=== PATIENT | female | born 1985 | race Caucasian/White ===

== ENCOUNTER 2019-09-15 21:07 | Inpatient (IN) | payer BC ==
[2019-09-15 21:43] LABS: Basophils % (A) 0 %; Eosinophils # (A) 0.1 k/uL (0-0.7); Eosinophils % (A) 1 %; HCT 45.4 % (34.0-46.0); HGB 15.2 gm/dL (11.4-16.0); Lymphocytes # (A) 0.8 k/uL (1.0-4.8); Lymphocytes % (A) 22 %; MCH 28.6 pg (25.0-35.0); MCHC 33.5 g/dL (31.0-37.0); MCV 85.3 fL (80.0-100.0); Mean Platelet Volume 8.3; Monocytes # (A) 0.3 k/uL (0-1.0); Monocytes % (A) 7 %; Neutrophils # (A) 2.5 k/uL (1.3-7.7); Neutrophils % (A) 68 %; Platelet Count 170 k/uL (150-450); RBC 5.33 m/uL (3.80-5.40); RDW 12.6 % (11.5-15.5); WBC 3.7 k/uL (3.8-10.6)
[2019-09-15 21:52] LABS: ALT 102 U/L (4-34); AST 68 U/L (14-36); African American GFR (CKD) >90 (>60 ml/min/1.73 sqM); Albumin 4.2 g/dL (3.5-5.0); Alkaline Phosphatase 114 U/L (38-126); Anion Gap 10 mmol/L; Blood Urea Nitrogen 9 mg/dL (7-17); Calcium 8.7 mg/dL (8.4-10.2); Carbon Dioxide 24 mmol/L (22-30); Chloride 103 mmol/L (98-107); Creatine Kinase 98 U/L (30-135); Glucose 154 mg/dL (74-99); Magnesium 1.9 mg/dL (1.6-2.3); Non-African American GFR(CKD) >90 (>60 ml/min/1.73 sqM); Potassium 3.6 mmol/L (3.5-5.1); Sodium 137 mmol/L (137-145); Total Bilirubin 0.4 mg/dL (0.2-1.3); Total Protein 7.1 g/dL (6.3-8.2)
--- NOTE | 2019-09-15 22:03 | ED ---
URI HPI - General Chief Complaint: Upper Respiratory Infection Stated Complaint: Shortness of Breath Time Seen by Provider: 09/15/19 21:15 Source: patient, RN notes reviewed Mode of arrival: ambulatory Limitations: no limitations - History of Present Illness Initial Comments: This is a 34-year-old female who presents with complaints of one week of cough fever some chills some sweats shortness of breath some chest pain. She was found upon arrival here to 101.1 temperature heart rate of 129 and sats are 99 however she does state that she has been exposed to patients with Covid-19 where she works. She does have a history of asthma. No overt phlegm production. Shows a states early on she did have some GI symptoms. The patient has been on azithromycin and steroids with no improvement No other current modifying factors MD Complaint: fever, cough, sore throat, nasal congestion, other - Related Data Home Medications Medication Instructions Recorded Confirmed traZODone HCL [Desyrel] 100 mg PO HS 05/20/15 09/15/19 Acetaminophen Tab [Tylenol] 650 mg PO Q6H PRN 09/15/19 09/15/19 Azithromycin [Zithromax Z-pack] See Taper PO DAILY 09/15/19 09/15/19 Citalopram Hydrobromide 30 mg PO HS 09/15/19 09/15/19 [Citalopram HBr] Introvale 0.15-0.3mg 1 tab PO HS 09/15/19 09/15/19 methylPREDNISolone [Medrol Dose See Taper PO DIRECTED 09/15/19 09/15/19 Pack] Allergies Allergy/AdvReac Type Severity Reaction Status Date / Time hydrocodone bitartrate AdvReac Nausea & Verified 09/15/19 22:14 [From Vicodin] Vomiting Review of Systems ROS Statement: Those systems with pertinent positive or pertinent negative responses have been documented in the HPI. ROS Other: All systems not noted in ROS Statement are negative. Past Medical History Past Medical History: Osteoarthritis (OA) History of Any Multi-Drug Resistant Organisms: None Reported Past Surgical History: Orthopedic Surgery Additional Past Surgical History / Comment(s): right eye surg., arthroscopic knee surg. Past Anesthesia/Blood Transfusion Reactions: No Reported Reaction Past Psychological History: Anxiety Smoking Status: Never smoker Past Alcohol Use History: Rare Past Drug Use History: None Reported - Past Family History Mother Family Medical History: No Reported History General Exam - General Exam Comments Initial Comments: This is a well-developed well-nourished awake alert oriented 3 female Limitations: no limitations General appearance: alert, anxious Head exam: Present: atraumatic, normocephalic, normal inspection Eye exam: Present: normal appearance, PERRL, EOMI. Absent: scleral icterus, conjunctival injection, periorbital swelling ENT exam: Present: mucous membranes dry, other (Mild posterior pharyngeal hyperemia) Neck exam: Present: normal inspection, full ROM. Absent: tenderness, meningismus, lymphadenopathy Respiratory exam: Present: decreased breath sounds. Absent: respiratory distress, wheezes, rales, rhonchi, stridor Cardiovascular Exam: Present: normal rhythm, tachycardia (Slightly diminished breath sounds bilaterally), normal heart sounds. Absent: systolic murmur, diastolic murmur, rubs, gallop, clicks GI/Abdominal exam: Present: soft, normal bowel sounds. Absent: distended, tenderness, guarding, rebound, rigid Extremities exam: Present: normal inspection, full ROM, normal capillary refill. Absent: tenderness, pedal edema, joint swelling, calf tenderness Back exam: Present: normal inspection Neurological exam: Present: alert, oriented X3, CN II-XII intact Psychiatric exam: Present: normal affect, normal mood Skin exam: Present: warm, dry, intact, normal color. Absent: rash Course Vital Signs 09/15/19 21:08 Temperature 101.1 F H Pulse Rate 129 H Respiratory 20 Rate Blood Pressure 147/93 O2 Sat by Pulse 99 Oximetry - Reevaluation(s) Reevaluation #1: 09/15/19 22:34 Discuss findings with the patient thus far the patient does have elevated d- dimer CAT scan pending. She does have left perihilar right lower lobe pneumonia. She will be admitted the case will be discussed with Dr. Rdz Medical Decision Making - Medical Decision Making I did discuss findings with the patient and later with Dr. Rdz facial be admitted for pneumonia and outpatient treatment failure. Influenza test is negative with Covid -19 testing pending - Lab Data Result diagrams: 09/15/19 21:20 09/15/19 21:20 Lab Results 09/15/19 09/15/19 09/15/19 Range/Units 21:20 21:20 21:40 WBC 3.7 L (3.8-10.6) k/uL RBC 5.33 (3.80-5.40) m/uL Hgb 15.2 (11.4-16.0) gm/dL Hct 45.4 (34.0-46.0) % MCV 85.3 (80.0-100.0) fL MCH 28.6 (25.0-35.0) pg MCHC 33.5 (31.0-37.0) g/dL RDW 12.6 (11.5-15.5) % Plt Count 170 (150-450) k/uL Neutrophils % 68 % Lymphocytes % 22 % Monocytes % 7 % Eosinophils % 1 % Basophils % 0 % Neutrophils # 2.5 (1.3-7.7) k/uL Lymphocytes # 0.8 L (1.0-4.8) k/uL Monocytes # 0.3 (0-1.0) k/uL Eosinophils # 0.1 (0-0.7) k/uL Basophils # 0.0 (0-0.2) k/uL D-Dimer 0.75 H (<0.60) mg/L FEU Sodium 137 (137-145) mmol/L Potassium 3.6 (3.5-5.1) mmol/L Chloride 103 (98-107) mmol/L Carbon Dioxide 24 (22-30) mmol/L Anion Gap 10 mmol/L BUN 9 (7-17) mg/dL Creatinine 0.75 (0.52-1.04) mg/dL Est GFR (CKD-EPI)AfAm >90 (>60 ml/min/1.73 sqM) Est GFR (CKD-EPI)NonAf >90 (>60 ml/min/1.73 sqM) Glucose 154 H (74-99) mg/dL Calcium 8.7 (8.4-10.2) mg/dL Magnesium 1.9 (1.6-2.3) mg/dL Total Bilirubin 0.4 (0.2-1.3) mg/dL AST 68 H (14-36) U/L ALT 102 H (4-34) U/L Alkaline Phosphatase 114 (38-126) U/L Creatine Kinase 98 (30-135) U/L Troponin I (0.000-0.034) ng/mL Total Protein 7.1 (6.3-8.2) g/dL Albumin 4.2 (3.5-5.0) g/dL Influenza Type A RNA (Not Detectd) Influenza Type B (PCR) (Not Detectd) 09/15/19 09/15/19 Range/Units 21:40 21:40 WBC (3.8-10.6) k/uL RBC (3.80-5.40) m/uL Hgb (11.4-16.0) gm/dL Hct (34.0-46.0) % MCV (80.0-100.0) fL MCH (25.0-35.0) pg MCHC (31.0-37.0) g/dL RDW (11.5-15.5) % Plt Count (150-450) k/uL Neutrophils % % Lymphocytes % % Monocytes % % Eosinophils % % Basophils % % Neutrophils # (1.3-7.7) k/uL Lymphocytes # (1.0-4.8) k/uL Monocytes # (0-1.0) k/uL Eosinophils # (0-0.7) k/uL Basophils # (0-0.2) k/uL D-Dimer (<0.60) mg/L FEU Sodium (137-145) mmol/L Potassium (3.5-5.1) mmol/L Chloride (98-107) mmol/L Carbon Dioxide (22-30) mmol/L Anion Gap mmol/L BUN (7-17) mg/dL Creatinine (0.52-1.04) mg/dL Est GFR (CKD-EPI)AfAm (>60 ml/min/1.73 sqM) Est GFR (CKD-EPI)NonAf (>60 ml/min/1.73 sqM) Glucose (74-99) mg/dL Calcium (8.4-10.2) mg/dL Magnesium (1.6-2.3) mg/dL Total Bilirubin (0.2-1.3) mg/dL AST (14-36) U/L ALT (4-34) U/L Alkaline Phosphatase (38-126) U/L Creatine Kinase (30-135) U/L Troponin I <0.012 (0.000-0.034) ng/mL Total Protein (6.3-8.2) g/dL Albumin (3.5-5.0) g/dL Influenza Type A RNA Not Detected (Not Detectd) Influenza Type B (PCR) Not Detected (Not Detectd) - Radiology Data Radiology results: report reviewed (I did review the x-ray results (however pneumonia right lower lobe pneumonia), image reviewed Disposition Clinical Impression: Pneumonia, Febrile illness, acute, Tachycardia, Asthmatic bronchitis, Failure of outpatient treatment Disposition: ADMITTED IP TO THIS HOSP Condition: Fair Referrals: Cora Cowart MD [Primary Care Provider] - 1-2 days
--- NOTE | 2019-09-15 22:27 | XR ---
EXAMINATION TYPE: XR chest 1V portable DATE OF EXAM: 09/15/2019 COMPARISON: 11/01/2012 INDICATION: Pain, cough, short of breath TECHNIQUE: Single frontal view of the chest is obtained. FINDINGS: The heart size is normal. The pulmonary vasculature is normal. There is mild ill-defined infiltrate in the left perihilar region. Some mild right lower lobe infiltr ate is present. Some air bronchograms may be present. Correlate for pneumonia. IMPRESSION: 1. Mild left perihilar and right lower lobe infiltrates. Correlate for pneumonia.
[2019-09-15] MEDS ORDERED: PNEUMONIA PROTOCOL UTILIZED 1 EACH MISC PO PRN (22:42)
[2019-09-15] MEDS: SODIUM CHLORIDE 0.9% 1,000 ML IV SCH (23:05)
[2019-09-15 23:08] LABS: INR 0.9 (<1.2); Prothrombin Time 9.3 sec (9.0-12.0)
--- NOTE | 2019-09-15 23:09 | CT ---
CT CHEST FOR PULMONARY EMBOLISM. EXAMINATION TYPE: CT angio chest DATE OF EXAM: 09/15/2019 INDICATION: rule out pe CT DLP: 403.3 mGycm, Automated exposure control for dose reduction was used. CONTRAST: Patient injected with 80mL mL of Isovue 370. COMPARISON: None TECHNIQUE: CT of the chest is performed on a spiral scan at 2 mm thick sections. Study is performed with intravenous contrast timed for evaluation for pulmonary embolism. This will limit additional po rtions of the evaluation. 3-D MIP images reconstructed by the technologist are reviewed on the compu ter in the coronal and sagittal planes. FINDINGS: No persistent filling defects are evident to suggest an acute pulmonary embolism. No mediastinal or hilar adenopathy enlarged by CT criteria is evident. The ascending aorta diameter at the level of the main pulmonary artery is 3.1 cm. The main pulmonary artery diameter at the bifur cation is 3.0 cm. There is minimal groundglass opacities within the perihilar regions. There is a small hiatal hernia p resent. Limited CT section through the upper abdomen are unremarkable. IMPRESSIONS: 1. No acute pulmonary embolism. 2. Minimal groundglass opacities within the perihilar regions. Correlate for infection. This appears atypical for pulmonary edema.
[2019-09-15 23:14] LABS: C Reactive Protein 23.8 mg/L (<10.0)
[2019-09-15 23:18] LABS: Partial Thromboplastin Time 21.5 sec (22.0-30.0)
[2019-09-15] MEDS: ACETAMINOPHEN TAB 325 MG TAB PO PRN (23:55)
[2019-09-16 02:27] LABS: Appearance,Urine Clear (Clear); Bilirubin,Urine Negative (Negative); Blood,Urine Negative (Negative); Color,Urine Yellow; Glucose,Urine (UA) Negative (Negative); Ketones,Urine Negative (Negative); Leukocyte Esterase,Urine Negative (Negative); Mucus,Urine Rare /hpf; Nitrite,Urine Negative (Negative); PH, Urine 6.5 (5.0-8.0); Protein,Urine 1+ (Negative); RBC,Urine 1 /hpf (0-5); Squamous Epithelial Cell,Urine 6 /hpf (0-4); Urobilinogen,Urine <2.0 mg/dL (<2.0); WBC,Urine 1 /hpf (0-5)
[2019-09-16] MEDS: ALBUTEROL INHALER 60 PUFF/8 GM INHALER (BULK) INHALATION SCH ×3 (02:28→11:53)
[2019-09-16 02:35] LABS: Specific Gravity,Urine >1.050 (1.001-1.035)
--- NOTE | 2019-09-16 07:16 | XR ---
EXAMINATION TYPE: XR chest 1V portable DATE OF EXAM: 09/16/2019 COMPARISON: 09/15/2019 HISTORY: Chest pain TECHNIQUE: Single frontal view of the chest is obtained. FINDINGS: Persistent right perihilar and to a lesser extent left perihilar infiltrate. Correlate pneumonia. The cardiac silhouette size is within normal limits. The osseous structures are intact. IMPRESSION: 1. Persistent right perihilar and to a lesser extent left perihilar infiltrate. Correlate pneumonia.
[2019-09-16] MEDS: SODIUM CHLORIDE 0.9% 1,000 ML IV SCH ×2 (10:04→19:35)
[2019-09-16] MEDS: HYDROXYCHLOROQUINE SULFATE 200 MG TAB PO SCH ×2 (10:21→21:57)
[2019-09-16] MEDS: methylPREDNISolone SOD SUCCI 40 MG/ML 1 ML VIAL IV SCH ×3 (10:21→23:45)
[2019-09-16] MEDS: AZITHROMYCIN 500 MG TAB PO SCH (10:21)
[2019-09-16] MEDS: ENOXAPARIN 40 MG/0.4 ML SYRINGE SQ SCH (11:23)
[2019-09-16] MEDS: ACETAMINOPHEN TAB 325 MG TAB PO PRN (11:23)
[2019-09-16] MEDS ORDERED: ONDANSETRON 4 MG/2 ML VIAL IVP PRN (12:41)
--- NOTE | 2019-09-16 14:05 | P.CNPUL ---
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 He was febrile on presentation with a temp of 101.1F, tachycardic, but normal pulse oximetry. She has been exposed to COVID 19 at work. She does have underlying history of mild intermittent bronchial asthma and she only uses Ventolin on as-needed basis, other medical history includes anxiety, and patient is a lifetime nonsmoker. Chest x-ray showed a mild left perihilar and right lower lobe infiltrate. Lab work showed leukopenia and lymphopenia, with a white blood cell count of 3.7, lymphocyte count of 0.8, d- dimer was 0.75, electrolyte renal profile were unremarkable, pro-calcitonin level was negative at 0.06, troponin was less than 0.012, CRP was 23.8, LDH was 533 ferritin was within normal limits at 105 plasma lactic acid was 1.1, urinalysis showed elevated specific gravity consistent with dehydration but no definite evidence of infection, influenza was not detected, Covid 19 testing has been done and is pending at this time, CTA chest was obtained showing no evidence of acute pulmonary embolism, and minimal groundglass opacities within the perihilar regions suspicious for Covid 19 related pneumonitis. Were asked to see the patient in consultation in regards to the above-mentioned symptoms for shortness of breath, and possible Covid 19 pneumonia Review of Systems All systems: negative Constitutional: Reports chills, Reports fever Eyes: denies blurred vision, denies pain Ears, nose, mouth and throat: Denies headache, Denies sore throat Cardiovascular: Denies chest pain, Denies shortness of breath Respiratory: Reports dyspnea, Denies cough Gastrointestinal: Denies abdominal pain, Denies diarrhea, Denies nausea, Denies vomiting Genitourinary: Denies dysuria, Denies hematuria Musculoskeletal: Denies myalgias Integumentary: Denies pruritus, Denies rash Neurological: Denies numbness, Denies weakness Psychiatric: Denies anxiety, Denies depression Endocrine: Denies fatigue, Denies weight change Past Medical History Past Medical History: Asthma, Osteoarthritis (OA) Additional Past Medical History / Comment(s): ovarian cyst, endomytriosis History of Any Multi-Drug Resistant Organisms: None Reported Past Surgical History: Orthopedic Surgery Additional Past Surgical History / Comment(s): right eye surg., arthroscopic knee surg. Past Anesthesia/Blood Transfusion Reactions: No Reported Reaction Past Psychological History: Anxiety, PTSD Smoking Status: Never smoker Past Alcohol Use History: Rare Past Drug Use History: None Reported - Past Family History Mother Family Medical History: No Reported History Medications and Allergies Home Medications Medication Instructions Recorded Confirmed Type traZODone HCL [Desyrel] 100 mg PO HS 05/20/15 09/15/19 History Acetaminophen Tab [Tylenol] 650 mg PO Q6H PRN 09/15/19 09/15/19 History Azithromycin [Zithromax Z-pack] See Taper PO DAILY 09/15/19 09/15/19 History Citalopram Hydrobromide 30 mg PO HS 09/15/19 09/15/19 History [Citalopram HBr] Introvale 0.15-0.3mg 1 tab PO HS 09/15/19 09/15/19 History methylPREDNISolone [Medrol Dose See Taper PO DIRECTED 09/15/19 09/15/19 History Pack] Allergies Allergy/AdvReac Type Severity Reaction Status Date / Time hydrocodone bitartrate AdvReac Nausea & Verified 09/15/19 22:14 [From Vicodin] Vomiting Physical Exam Vitals: Vital Signs Temp Pulse Pulse Resp BP BP Pulse Ox 09/16/19 11:45 99.5 F 92 19 118/80 95 09/16/19 07:00 99.2 F 85 18 145/99 97 09/16/19 05:00 95 09/16/19 03:36 98.6 F 83 15 113/80 94 L 09/16/19 01:25 99.4 F 09/16/19 01:00 95 09/15/19 23:54 101.1 F H 108 H 15 131/90 98 09/15/19 23:10 99.9 F H 101 H 18 122/87 97 09/15/19 21:08 101.1 F H 129 H 20 147/93 99 Intake and Output 09/15/19 09/16/19 09/16/19 22:59 06:59 14:59 Intake Total 640 Balance 640 Intake: Intake, IV Titration 100 Amount Sodium Chloride 0.9% 1, 100 000 ml @ 50 mls/hr IV . Q20H [facility] Rx#:[id number] Oral 540 Other: Voiding Method Toilet Toilet # Voids 1 Weight 92.986 kg 92.986 kg GENERAL EXAM: Alert, very pleasant, 34-year-old white female with room air pulse ox of 95% mildly dyspneic comfortable in no apparent distress. HEAD: Normocephalic/atraumatic. EYES: Normal reaction of pupils, equal size. Conjunctiva pink, sclera white. NOSE: Clear with pink turbinates. THROAT: No erythema or exudates. NECK: No masses, no JVD, no thyroid enlargement, no adenopathy. CHEST: No chest wall deformity. Symmetrical expansion. LUNGS: Equal air entry with no crackles, wheeze, rhonchi or dullness. CVS: Regular rate and rhythm, normal S1 and S2, no gallops, no murmurs, no rubs ABDOMEN: Soft, nontender. No hepatosplenomegaly, normal bowel sounds, no guarding or rigidity. EXTREMITIES: No clubbing, no edema, no cyanosis, 2+ pulses and upper and lower extremities. MUSCULOSKELETAL: Muscle strength and tone normal. SPINE: No scoliosis or deformity SKIN: No rashes CENTRAL NERVOUS SYSTEM: Alert and oriented -3. No focal deficits, tone is nor mal in all 4 extremities. PSYCHIATRIC: Alert and oriented -3. Appropriate affect. Intact judgment and insight. Results - Laboratory Findings CBC and BMP: 09/15/19 21:20 09/15/19 21:20 PT/INR, D-dimer PT 9.3 sec (9.0-12.0) 09/15/19 21:40 INR 0.9 (<1.2) 09/15/19 21:40 D-Dimer 0.75 mg/L FEU (<0.60) H 09/15/19 21:40 Abnormal lab findings: Abnormal Labs 09/15/19 09/15/19 09/15/19 21:20 21:20 21:40 WBC 3.7 L Lymphocytes # 0.8 L APTT D-Dimer 0.75 H Glucose 154 H AST 68 H ALT 102 H C-Reactive Protein Ur Specific [place] Urine Protein Ur Squamous Epith Cells Urine Mucus 09/15/19 09/15/19 09/16/19 21:40 21:40 02:12 WBC Lymphocytes # APTT 21.5 L D-Dimer Glucose AST ALT C-Reactive Protein 23.8 H Ur Specific [place] >1.050 H Urine Protein 1+ H Ur Squamous Epith Cells 6 H Urine Mucus Rare H - Diagnostic Findings Chest x-ray: report reviewed, image reviewed CT scan - chest: report reviewed, image reviewed Assessment and Plan Plan: Assessment: #1. Febrile illness, dyspnea, rule out COVID 19 related pneumonitis. Pro- calcitonin level came back low at 0.06, going out possibility of bacterial pneumonia. Chest x-ray showed mild left perihilar and right lower lobe infiltrates. D-dimer was mildly elevated 0.75. CTA chest showed no acute pulmonary embolism, but did show minimal ground glass opacities within the perihilar regions suspicious for Covid 19 related pneumonitis #2. Leukopenia, and lymphopenia likely related to Covid 19 related pneumonia #3. Mild intermittent bronchial asthma #4. Anxiety #5. Mild dehydration Plan: Continue ceftriaxone, we will add Zithromax, we'll add hydroxychloroquine, IV steroids, Ventolin, and Symbicort. Covid 19 testing is pending, follow-up chest x-ray in the morning monitor fever pattern, and oxygen demand. We'll continue to closely follow clinical course. I performed a history & physical examination of the patient and discussed their management with my nurse practitioner, Beth Gee. I reviewed the nurse practitioner's note and agree with the documented findings and plan of care. Lung sounds are positive for diminished breath sounds. The findings and the impression was discussed with the patient. I attest to the documentation by the nurse practitioner. Time with Patient: Greater than 30
[2019-09-16] MEDS ORDERED: ALBUTEROL HFA INHALER INHALATION SCH (20:00)
[2019-09-16] MEDS: SYMBICORT 160-4.5 MCG INHALER INHALATION SCH (20:13)
--- NOTE | 2019-09-16 20:16 | P.HPIM ---
History of Present Illness H&P Date: 09/16/19 Chief Complaint: Cough fever History of present complaint: This is a pleasant [address]. Patient of Dr[address] Cowart. Chronic stable medical conditions include endometriosis, PTSD, anxiety. 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 For about a week patient been having a cough which is dry fevers short of breath chest tightness. Also having some headache. Body aches. Also had about once a loose stools so vomiting. Tired rundown. Patient had taken off time from work about 5-6 days ago. Now presenting here Labs were sent out for COVID-19. tired and rundown. Review of systems: GEN.: Fever or tiredness EYES: None HEENT: Headache NECK: None RESPIRATORY: As above CARDIOVASCULAR: None GASTROINTESTINAL: About one dose to a GENITOURINARY: None MUSCULOSKELETAL: Generalized itchiness LYMPHATICS: None HEMATOLOGICAL: None PSYCHIATRY: None NEUROLOGICAL: None Past medical history to include: Asthma, endometriosis, PTSD, anxiety Social history: Does not smoke. Alcohol rarely. 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 Family history: Reviewed, noncontributory to presentation Physical examination: VITAL SIGNS: 101.1, 129, 20, 147/93, melena 9% on room air GENERAL: BMI 36.3, sitting up, tired. EYES: Pupils equal. Conjunctiva normal. HEENT: External appearance of nose and ears normal, oral cavity grossly normal. NECK: JVD not raised; masses not palpable. HEART: First and second heart sounds are normal; no edema. LUNGS: Respiratory rate increased, decreased breath sounds. ABDOMEN: Soft, nontender, liver spleen not palpable, no masses palpable. PSYCH: Alert and oriented x3; mood and affect tiredl. NEUROLOGICAL: Cranial nerves grossly intact; no facial asymmetry, power and sensation grossly intact. LYMPHATICS: No lymph nodes palpable in the axilla and neck INVESTIGATIONS, reviewed in the clinical context: White count 3.7 hemoglobin 13.2 neutrophils neutrophils 2.5 lymphocytes 0.8 d- dimer 0.75 potassium 3.6 AST 68 ALT 102 CRP 23.8 pro calcitonin 0.06 Influenza type A and type B both negative COVID-19 PCR pending Chest x-ray film personally reviewed by me-bilateral scattered infiltrates EKG tracing personally reviewed by me-normal sinus rhythm nonspecific T-wave changes Computed tomography scan of the chest-minimal groundglass appearance within the perihilar regions Assessment: -This is a patient presents 1 week of respiratory symptoms including dry cough fever short of breath chest tightness or a systemic findings and some diarrhea. Checks x-ray and computed tomography scan was suggestive of infiltrates. Clinical picture compatible with novel coronavirus infected pneumonia -Obesity BMI 36.3 -Intermittent asthma with acute exacerbation -PTSD stable -Anxiety not otherwise specified Plan: Patient be started on Zithromax, ceftriaxone. Home medications resumed. Lovenox for DVT prophylaxis. Also empirically started on Plaquenil. Also Ventolin inhalers been added. Pulmonary was consulted. COVID-19 testing is pending. Care was discussed with the patient. Add zinc Past Medical History Past Medical History: Asthma, Osteoarthritis (OA) Additional Past Medical History / Comment(s): ovarian cyst, endomytriosis History of Any Multi-Drug Resistant Organisms: None Reported Past Surgical History: Orthopedic Surgery Additional Past Surgical History / Comment(s): right eye surg., arthroscopic knee surg. Past Anesthesia/Blood Transfusion Reactions: No Reported Reaction Past Psychological History: Anxiety, PTSD Smoking Status: Never smoker Past Alcohol Use History: Rare Past Drug Use History: None Reported - Past Family History Mother Family Medical History: No Reported History Medications and Allergies Home Medications Medication Instructions Recorded Confirmed Type traZODone HCL [Desyrel] 100 mg PO HS 05/20/15 09/15/19 History Acetaminophen Tab [Tylenol] 650 mg PO Q6H PRN 09/15/19 09/15/19 History Azithromycin [Zithromax Z-pack] See Taper PO DAILY 09/15/19 09/15/19 History Citalopram Hydrobromide 30 mg PO HS 09/15/19 09/15/19 History [Citalopram HBr] Introvale 0.15-0.3mg 1 tab PO HS 09/15/19 09/15/19 History methylPREDNISolone [Medrol Dose See Taper PO DIRECTED 09/15/19 09/15/19 History Pack] Allergies Allergy/AdvReac Type Severity Reaction Status Date / Time hydrocodone bitartrate AdvReac Nausea & Verified 09/15/19 22:14 [From Vicodin] Vomiting Physical Exam Vitals: Vital Signs Temp Pulse Pulse Resp BP BP Pulse Ox 09/16/19 07:00 99.2 F 85 18 145/99 97 09/16/19 05:00 95 09/16/19 03:36 98.6 F 83 15 113/80 94 L 09/16/19 01:25 99.4 F 09/16/19 01:00 95 09/15/19 23:54 101.1 F H 108 H 15 131/90 98 09/15/19 23:10 99.9 F H 101 H 18 122/87 97 09/15/19 21:08 101.1 F H 129 H 20 147/93 99 Intake and Output 09/15/19 09/16/19 09/16/19 22:59 06:59 14:59 Intake Total 640 Balance 640 Intake: Intake, IV Titration 100 Amount Sodium Chloride 0.9% 1, 100 000 ml @ 50 mls/hr IV . Q20H [facility] Rx#:[id number] Oral 540 Other: Voiding Method Toilet Toilet # Voids 1 Weight 92.986 kg 92.986 kg Results CBC & Chem 7: 09/15/19 21:20 09/15/19 21:20 Labs: Abnormal Lab Results - Last 24 Hours (Table) 09/15/19 09/15/19 09/15/19 Range/Units 21:20 21:20 21:40 WBC 3.7 L (3.8-10.6) k/uL Lymphocytes # 0.8 L (1.0-4.8) k/uL APTT (22.0-30.0) sec D-Dimer 0.75 H (<0.60) mg/L FEU Glucose 154 H (74-99) mg/dL AST 68 H (14-36) U/L ALT 102 H (4-34) U/L C-Reactive Protein (<10.0) mg/L Ur Specific [place] (1.001-1.035) Urine Protein (Negative) Ur Squamous Epith Cells (0-4) /hpf Urine Mucus (None) /hpf 09/15/19 09/15/19 09/16/19 Range/Units 21:40 21:40 02:12 WBC (3.8-10.6) k/uL Lymphocytes # (1.0-4.8) k/uL APTT 21.5 L (22.0-30.0) sec D-Dimer (<0.60) mg/L FEU Glucose (74-99) mg/dL AST (14-36) U/L ALT (4-34) U/L C-Reactive Protein 23.8 H (<10.0) mg/L Ur Specific [place] >1.050 H (1.001-1.035) Urine Protein 1+ H (Negative) Ur Squamous Epith Cells 6 H (0-4) /hpf Urine Mucus Rare H (None) /hpf Thrombosis Risk Factor Assmnt - Choose All That Apply Each Factor Represents 1 point: Obesity (BMI >25), Oral contraceptives or ho rmone replacement therapy Thrombosis Risk Factor Assessment Total Risk Factor Score: 2 Thrombosis Risk Factor Assessment Level: Low Risk
[2019-09-16] MEDS: traZODone HCL 50 MG TAB PO SCH (20:59)
[2019-09-16] MEDS: CITALOPRAM HYDROBROMIDE 10 MG TAB PO SCH (21:00)
[2019-09-16] MEDS: INTROVALE PO SCH (21:19)
[2019-09-17] MEDS: ENOXAPARIN 40 MG/0.4 ML SYRINGE SQ SCH (07:30)
[2019-09-17] MEDS: methylPREDNISolone SOD SUCCI 40 MG/ML 1 ML VIAL IV SCH ×2 (07:32→16:52)
[2019-09-17] MEDS: HYDROXYCHLOROQUINE SULFATE 200 MG TAB PO SCH ×2 (07:32→21:19)
[2019-09-17] MEDS: AZITHROMYCIN 500 MG TAB PO SCH (07:32)
[2019-09-17] MEDS: ALBUTEROL HFA INHALER INHALATION SCH ×4 (07:51→20:28)
[2019-09-17] MEDS: SYMBICORT 160-4.5 MCG INHALER INHALATION SCH ×2 (07:52→20:28)
--- NOTE | 2019-09-17 08:36 | XR ---
EXAMINATION TYPE: XR chest 1V portable DATE OF EXAM: 09/17/2019 COMPARISON: 40 01/28/2020 INDICATION: Covid 19 TECHNIQUE: Single frontal view of the chest is obtained. FINDINGS: The heart size is normal. The pulmonary vasculature is normal. Subtle increased lung markings may be present diffusely. This is very mild and subtle compared to the prior study. No suspicious focal consolidation is evident. IMPRESSION: 1. Mild diffuse increased lung markings less focal than the comparison. Significant radiographic adva ncement is not evident at this time.
[2019-09-17] MEDS: ACETAMINOPHEN TAB 325 MG TAB PO PRN ×2 (11:54→16:52)
--- NOTE | 2019-09-17 12:27 | P.PN ---
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 He was febrile on presentation with a temp of 101.1F, tachycardic, but normal pulse oximetry. She has been exposed to COVID 19 at work. She does have underlying history of mild intermittent bronchial asthma and she only uses Ventolin on as-needed basis, other medical history includes anxiety, and patient is a lifetime nonsmoker. Chest x-ray showed a mild left perihilar and right lower lobe infiltrate. Lab work showed leukopenia and lymphopenia, with a white blood cell count of 3.7, lymphocyte count of 0.8, d- dimer was 0.75, electrolyte renal profile were unremarkable, pro-calcitonin level was negative at 0.06, troponin was less than 0.012, CRP was 23.8, LDH was 533 ferritin was within normal limits at 105 plasma lactic acid was 1.1, urinalysis showed elevated specific gravity consistent with dehydration but no definite evidence of infection, influenza was not detected, Covid 19 testing has been done and is pending at this time, CTA chest was obtained showing no evidence of acute pulmonary embolism, and minimal groundglass opacities within the perihilar regions suspicious for Covid 19 related pneumonitis. Were asked to see the patient in consultation in regards to the above-mentioned symptoms for shortness of breath, and possible Covid 19 pneumonia On 09/17/2019 patient seen in follow-up on a regular medical surgical floor, she is feeling better, breathing easier today, she's been afebrile, room air pulse ox is 95%, hemodynamically she is stable, lung sounds improved today. Her Covid 19 testing was positive. Today's follow-up chest x-ray was reviewed showing mild diffuse increased lung markings that are less focal than the comparison. Clinically patient is improving, she has not shown any signs of deterioration since admission, she could possibly be considered for discharge home today to continue and self quarantine Objective - Vital Signs Vital signs: Vital Signs Temp 98.7 F 09/17/19 11:18 Pulse 103 H 09/17/19 11:18 Resp 19 09/17/19 11:18 BP 135/94 09/17/19 11:18 Pulse Ox 95 09/17/19 11:18 Intake & Output 09/16/19 09/17/19 09/17/19 18:59 06:59 18:59 Intake Total 640 20 580 Balance 640 20 580 Intake: Intake, IV Titration 100 Amount Sodium Chloride 0.9% 1, 100 000 ml @ 50 mls/hr IV . Q20H [facility] Rx#:[id number] Oral 540 20 580 Other: Voiding Method Toilet Toilet - Exam GENERAL EXAM: Alert, very pleasant, 34-year-old white female with room air pulse ox of 95% comfortable in no apparent distress. HEAD: Normocephalic/atraumatic. EYES: Normal reaction of pupils, equal size. Conjunctiva pink, sclera white. NOSE: Clear with pink turbinates. THROAT: No erythema or exudates. NECK: No masses, no JVD, no thyroid enlargement, no adenopathy. CHEST: No chest wall deformity. Symmetrical expansion. LUNGS: Equal air entry with no crackles, wheeze, rhonchi or dullness. CVS: Regular rate and rhythm, normal S1 and S2, no gallops, no murmurs, no rubs ABDOMEN: Soft, nontender. No hepatosplenomegaly, normal bowel sounds, no guarding or rigidity. EXTREMITIES: No clubbing, no edema, no cyanosis, 2+ pulses and upper and lower extremities. MUSCULOSKELETAL: Muscle strength and tone normal. SPINE: No scoliosis or deformity SKIN: No rashes CENTRAL NERVOUS SYSTEM: Alert and oriented -3. No focal deficits, tone is normal in all 4 extremities. PSYCHIATRIC: Alert and oriented -3. Appropriate affect. Intact judgment and insight. - Labs CBC & Chem 7: 09/15/19 21:20 09/15/19 21:20 Labs: Abnormal Lab Results - Last 24 Hours (Table) 09/15/19 Range/Units 21:40 Coronavirus (PCR) Detected H (Not Detected) Microbiology - Last 24 Hours (Table) 09/15/19 21:40 Blood Culture - Preliminary Blood No Growth after 24 hours Assessment and Plan Plan: Assessment: #1. Febrile illness, dyspnea, related to Covid 19 pneumonitis. Pro-calcitonin level came back low at 0.06, ruling out possibility of bacterial pneumonia. Chest x-ray showed mild left perihilar and right lower lobe infiltrates. D- dimer was mildly elevated 0.75. CTA chest showed no acute pulmonary embolism, but did show minimal ground glass opacities within the perihilar regions suspicious for Covid 19 related pneumonitis #2. Leukopenia, and lymphopenia likely related to Covid 19 related pneumonia #3. Mild intermittent bronchial asthma #4. Anxiety #5. Mild dehydration Plan: Continue current medical treatment, Covid 19 testing came back positive, contin ue Plaquenil, Rocephin and Zithromax, IV Solu-Medrol. Patient is feeling better, breathing easier, she has not shown any signs of clinical deterioration, she is on room air, maintaining stable oxygenation, from pulmonary perspective she could be considered for discharge home today or tomorrow to continue in self-quarantine I performed a history & physical examination of the patient and discussed their management with my nurse practitioner, Beth Gee. I reviewed the nurse practitioner's note and agree with the documented findings and plan of care. Lung sounds are positive for diminished breath sounds. The findings and the impression was discussed with the patient. I attest to the documentation by the nurse practitioner. Time with Patient: Less than 30
[2019-09-17] MEDS: SODIUM CHLORIDE 0.9% 1,000 ML IV SCH (14:21)
--- NOTE | 2019-09-17 20:32 | P.PN ---
Progress Note - Text Progress Note Date: 09/17/19 Chief Complaint: Cough fever History of present complaint: This is a pleasant 30[address] Coawrt. Chronic stable medical conditions include endometriosis, PTSD, anxiety. 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 For about a week patient been having a cough which is dry fevers short of breath chest tightness. Also having some headache. Body aches. Also had about once a loose stools so vomiting. Tired rundown. Patient had taken off time from work about 5-6 days ago. Now presenting here Labs were sent out for COVID-19. tired and rundown. Admitted with pneumonia asthma exacerbation. Today-. A bit better. Though tired. Decreased appetite. COVID PCR came back positive. Patient a bit more cheerful. Review of systems: Was done for constitutional, cardiovascular, GI, pulmonary. relevant finding as above Active Medications Acetaminophen (Tylenol Tab) 650 mg PO Q6H PRN PRN Reason: Fever Last Admin: 09/17/19 16:52 Dose: 650 mg Documented by: Albuterol Sulfate (Ventolin Hfa Inhaler) 2 puff INHALATION RT-QID [facility] Last Admin: 09/17/19 16:13 Dose: 2 puff Documented by: Azithromycin (Zithromax) 500 mg PO DAILY [facility] Last Admin: 09/17/19 07:32 Dose: 500 mg Documented by: Budesonide/Formoterol Fumarate (Symbicort 160-4.5 Mcg Inhaler) 2 puff INHALATION RT-BID [facility] Last Admin: 09/17/19 07:52 Dose: 2 puff Documented by: Citalopram Hydrobromide (Celexa) 30 mg PO HS [facility] Last Admin: 09/16/19 21:00 Dose: 30 mg Documented by: Enoxaparin Sodium (Lovenox) 40 mg SQ DAILY [facility] Last Admin: 09/17/19 07:30 Dose: Not Given Documented by: Hydroxychloroquine Sulfate (Plaquenil) 200 mg PO BID [facility] Stop: 09/20/19 21:01 Last Admin: 09/17/19 07:32 Dose: 200 mg Documented by: Ceftriaxone Sodium 1 gm/ (Sodium Chloride) 50 mls @ 100 mls/hr IVPB Q24H [facility] Last Admin: 09/16/19 22:09 Dose: 100 mls/hr Documented by: Sodium Chloride (Saline 0.9%) 1,000 mls @ 50 mls/hr IV .Q20H [facility] Last Admin: 09/17/19 14:21 Dose: Not Given Documented by: Methylprednisolone Sodium Succinate (Solu-Medrol) 40 mg IV Q8HR [facility] Last Admin: 09/17/19 16:52 Dose: 40 mg Documented by: Miscellaneous Information (Pneumonia Protocol Utilized) 1 each PO ONCE PRN PRN Reason: Per Protocol Introvale 0.15-0.3mg (1 Tab) 1 tab PO [facility] Last Admin: 09/16/19 21:19 Dose: 1 tab Documented by: Ondansetron HCl (Zofran) 4 mg IVP Q6HR PRN PRN Reason: Nausea And Vomiting Trazodone HCl (Desyrel) 100 mg PO [facility] Last Admin: 09/16/19 20:59 Dose: 100 mg Documented by: Physical examination: VITAL SIGNS: 98.7, 103, 19, 135/94, 95% on room air GENERAL: Sitting up in bed, looking better EYES: Pupils equal. Conjunctiva normal. HEENT: External appearance of nose and ears normal, oral cavity grossly normal. NECK: JVD not raised; masses not palpable. HEART: First and second heart sounds are normal; no edema. LUNGS: Respiratory rate increased, decreased breath sounds. ABDOMEN: Soft, nontender, liver spleen not palpable, no masses palpable. PSYCH: Alert and oriented x3; mood and affect tiredl. INVESTIGATIONS, reviewed in the clinical context: COVID-19 PCR detected Previous testing White count 3.7 hemoglobin 13.2 neutrophils neutrophils 2.5 lymphocytes 0.8 d- dimer 0.75 potassium 3.6 AST 68 ALT 102 CRP 23.8 pro calcitonin 0.06 Influenza type A and type B both negative Chest x-ray film personally reviewed by me-bilateral scattered infiltrates EKG tracing personally reviewed by me-normal sinus rhythm nonspecific T-wave changes Computed tomography scan of the chest-minimal groundglass appearance within the perihilar regions Assessment: -novel coronavirus infected pneumonia -Obesity BMI 36.3 -Intermittent asthma with acute exacerbation -PTSD stable -Anxiety not otherwise specified Plan: on Zithromax, ceftriaxone. Plaquenil. Also Ventolin inhalers been added. Switched to oral prednisone in the morning. Feeling a bit better. Encouraged increase ambulation. Repeat labs in the morning.
[2019-09-17] MEDS: CITALOPRAM HYDROBROMIDE 10 MG TAB PO SCH (21:18)
[2019-09-17] MEDS: INTROVALE PO SCH (21:19)
[2019-09-17] MEDS: traZODone HCL 50 MG TAB PO SCH (21:19)
[2019-09-17] MEDS: ZINC SULFATE 220 MG CAP PO SCH (21:44)
[2019-09-18 06:50] LABS: Basophils % (A) 0 %; Eosinophils % (A) 0 %; HCT 42.3 % (34.0-46.0); HGB 13.7 gm/dL (11.4-16.0); Lymphocytes # (A) 0.9 k/uL (1.0-4.8); Lymphocytes % (A) 10 %; MCHC 32.3 g/dL (31.0-37.0); MCV 86.9 fL (80.0-100.0); Mean Platelet Volume 8.1; Monocytes # (A) 0.4 k/uL (0-1.0); Monocytes % (A) 4 %; Neutrophils # (A) 7.6 k/uL (1.3-7.7); Neutrophils % (A) 85 %; Platelet Count 220 k/uL (150-450); RBC 4.87 m/uL (3.80-5.40); RDW 12.7 % (11.5-15.5)
[2019-09-18] MEDS: HYDROXYCHLOROQUINE SULFATE 200 MG TAB PO SCH (07:36)
[2019-09-18] MEDS: ENOXAPARIN 40 MG/0.4 ML SYRINGE SQ SCH (07:36)
[2019-09-18] MEDS: AZITHROMYCIN 500 MG TAB PO SCH (07:36)
[2019-09-18] MEDS: ZINC SULFATE 220 MG CAP PO SCH (07:36)
[2019-09-18] MEDS: SYMBICORT 160-4.5 MCG INHALER INHALATION SCH (07:38)
[2019-09-18] MEDS: ALBUTEROL HFA INHALER INHALATION SCH ×2 (07:38→11:55)
[2019-09-18] MEDS: ACETAMINOPHEN TAB 325 MG TAB PO PRN (07:43)
[2019-09-18] MEDS ORDERED: predniSONE 20 MG TAB PO SCH (09:00)
[2019-09-18 11:22] VITALS: BP 130/81; PULSE 82; RESP 18; TEMP 98.4
--- NOTE | 2019-09-18 11:55 | P.PN ---
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 He was febrile on presentation with a temp of 101.1F, tachycardic, but normal pulse oximetry. She has been exposed to COVID 19 at work. She does have underlying history of mild intermittent bronchial asthma and she only uses Ventolin on as-needed basis, other medical history includes anxiety, and patient is a lifetime nonsmoker. Chest x-ray showed a mild left perihilar and right lower lobe infiltrate. Lab work showed leukopenia and lymphopenia, with a white blood cell count of 3.7, lymphocyte count of 0.8, d- dimer was 0.75, electrolyte renal profile were unremarkable, pro-calcitonin level was negative at 0.06, troponin was less than 0.012, CRP was 23.8, LDH was 533 ferritin was within normal limits at 105 plasma lactic acid was 1.1, urinalysis showed elevated specific gravity consistent with dehydration but no definite evidence of infection, influenza was not detected, Covid 19 testing has been done and is pending at this time, CTA chest was obtained showing no evidence of acute pulmonary embolism, and minimal groundglass opacities within the perihilar regions suspicious for Covid 19 related pneumonitis. Were asked to see the patient in consultation in regards to the above-mentioned symptoms for shortness of breath, and possible Covid 19 pneumonia On 09/17/2019 patient seen in follow-up on a regular medical surgical floor, she is feeling better, breathing easier today, she's been afebrile, room air pulse ox is 95%, hemodynamically she is stable, lung sounds improved today. Her Covid 19 testing was positive. Today's follow-up chest x-ray was reviewed showing mild diffuse increased lung markings that are less focal than the comparison. Clinically patient is improving, she has not shown any signs of deterioration since admission, she could possibly be considered for discharge home today to continue and self quarantine On 09/18/2019 patient seen in follow-up on the regular medical surgical floor. She is feeling better, vital signs are stable, she has been afebrile, no rhonchi or wheezing on today's exam, patient has been transitioned to oral prednisone at 60 mg daily, she is on Zithromax and Rocephin, and she is completing her course of hydroxychloroquine for positive Covid 19 test. No new chest x-rays today, CRP is trending down, no LDH of ferritin were repeated today. Clinically patient is improving, upon her perspective she can considered for discharge home today Objective - Vital Signs Vital signs: Vital Signs Temp 98.4 F 09/18/19 11:21 Pulse 82 09/18/19 11:21 Resp 18 09/18/19 11:21 BP 130/81 09/18/19 11:21 Pulse Ox 94 L 09/18/19 11:21 Intake & Output 09/17/19 09/18/19 09/18/19 18:59 06:59 18:59 Intake Total 760 50 580 Balance 760 50 580 Intake: Intake, IV Titration 50 Amount cefTRIAXone 1 gm In 50 Sodium Chloride 0.9% 50 ml @ 100 mls/hr IVPB Q24H [facility] Rx#:[id number] Oral 760 580 Other: Voiding Method Toilet Toilet # Voids 1 1 - Exam GENERAL EXAM: Alert, very pleasant, 34-year-old white female with room air pulse ox of 95% comfortable in no apparent distress. HEAD: Normocephalic/atraumatic. EYES: Normal reaction of pupils, equal size. Conjunctiva pink, sclera white. NOSE: Clear with pink turbinates. THROAT: No erythema or exudates. NECK: No masses, no JVD, no thyroid enlargement, no adenopathy. CHEST: No chest wall deformity. Symmetrical expansion. LUNGS: Equal air entry with no crackles, wheeze, rhonchi or dullness. CVS: Regular rate and rhythm, normal S1 and S2, no gallops, no murmurs, no rubs ABDOMEN: Soft, nontender. No hepatosplenomegaly, normal bowel sounds, no guarding or rigidity. EXTREMITIES: No clubbing, no edema, no cyanosis, 2+ pulses and upper and lower extremities. MUSCULOSKELETAL: Muscle strength and tone normal. SPINE: No scoliosis or deformity SKIN: No rashes CENTRAL NERVOUS SYSTEM: Alert and oriented -3. No focal deficits, tone is normal in all 4 extremities. PSYCHIATRIC: Alert and oriented -3. Appropriate affect. Intact judgment and insight. - Labs CBC & Chem 7: 09/18/19 05:31 09/15/19 21:20 Labs: Abnormal Lab Results - Last 24 Hours (Table) 09/18/19 09/18/19 Range/Units 05:31 05:31 Lymphocytes # 0.9 L (1.0-4.8) k/uL C-Reactive Protein 11.0 H (<10.0) mg/L Microbiology - Last 24 Hours (Table) 09/15/19 21:40 Blood Culture - Preliminary Blood No Growth after 48 hours Assessment and Plan Plan: Assessment: #1. Febrile illness, dyspnea, related to Covid 19 pneumonitis. Pro-calcitonin level came back low at 0.06, ruling out possibility of bacterial pneumonia. Chest x-ray showed mild left perihilar and right lower lobe infiltrates. D- dimer was mildly elevated 0.75. CTA chest showed no acute pulmonary embolism, but did show minimal ground glass opacities within the perihilar regions suspicious for Covid 19 related pneumonitis. On 09/18/2019 patient is feeling better, she is recovering from her Covid 19 related pneumonia. Afebrile #2. Leukopenia, and lymphopenia likely related to Covid 19 related pneumonia #3. Mild intermittent bronchial asthma #4. Anxiety #5. Mild dehydration, improved Plan: Continue current medical treatment, patient has been transitioned to oral prednisone, she continues on Plaquenil, and Rocephin and Zithromax, she's been off the oxygen, she is feeling and breathing better, no persistent cough, no persistent fevers, CRP is trending down, clinically stable, and can be considere d for discharge home today. She will need to continue self isolation, she will need follow-up test in 2 weeks for Covid 19 infection I performed a history & physical examination of the patient and discussed their management with my nurse practitioner, Beth Gee. I reviewed the nurse practitioner's note and agree with the documented findings and plan of care. Lung sounds are positive for diminished breath sounds. The findings and the impression was discussed with the patient. I attest to the documentation by the nurse practitioner. Time with Patient: Less than 30
--- NOTE | 2019-09-18 21:44 | P.DS ---
Providers Date of admission: 09/15/19 22:42 Expected date of discharge: 09/18/19 Attending physician: Parth Rdz Consults: 09/15/19 22:42 Consult Physician Routine Consulting Provider: Hernando Mack Consult Reason/Comments: Bilateral pneumonia rule out Covid 19 Do you want consulting provider notified?: Yes Primary care physician: Cora Cowart [facility] Course: Chief Complaint: Cough fever History of present complaint: This is a pleasant 34-year-old. Patient of Dr. Cowrat. Chronic stable medical conditions include endometriosis, PTSD, anxiety. 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 For about a week patient been having a cough which is dry fevers short of breath chest tightness. Also having some headache. Body aches. Also had about once a loose stools so vomiting. Tired rundown. Patient had taken off time from work about 5-6 days ago. Now presenting here Labs were sent out for COVID-19. tired and rundown. Admitted with pneumonia, asthma exacerbation. COVID PCR came back positive. Today-. Doing better. Eating her diet. Pulse ox good on room air. Up and about to the bathroom. Cane to go home. Quarantine was discussed with the patient. Cleared by pulmonary. Discussion and discharge planning more than 35 minutes Consultation: Dr. Barr from pulmonary Physical examination: VITAL SIGNS: 98.4, 82, 18, 130/81, 94% on room air GENERAL: Sitting up in bed, comfortable EYES: Pupils equal. Conjunctiva normal. HEENT: External appearance of nose and ears normal, oral cavity grossly normal. NECK: JVD not raised; masses not palpable. HEART: First and second heart sounds are normal; no edema. LUNGS: Respiratory rate normal, decreased breath sounds. ABDOMEN: Soft, nontender, liver spleen not palpable, no masses palpable. PSYCH: Alert and oriented x3; mood and affect tiredl. INVESTIGATIONS, reviewed in the clinical context: White count 9 hemoglobin 13.7 CRP 11 Previous testing White count 3.7 hemoglobin 13.2 neutrophils neutrophils 2.5 lymphocytes 0.8 d- dimer 0.75 potassium 3.6 AST 68 ALT 102 CRP 23.8 pro calcitonin 0.06 Influenza type A and type B both negative COVID-19 PCR detected Chest x-ray film personally reviewed by me-bilateral scattered infiltrates EKG tracing personally reviewed by me-normal sinus rhythm nonspecific T-wave changes Computed tomography scan of the chest-minimal groundglass appearance within the perihilar regions Assessment: -novel coronavirus infected pneumonia-improving -Obesity BMI 36.3 -Intermittent asthma with acute exacerbation -PTSD stable -Anxiety not otherwise specified Disposition: Home Patient Condition at Discharge: Stable Plan - Discharge Summary New Discharge Prescriptions: New Cefuroxime Axetil [Ceftin] 500 mg PO BID 3 Days #6 tab Zinc Sulfate [Orazinc] 220 mg PO DAILY #10 cap Hydroxychloroquine Sulfate [Plaquenil] 200 mg PO BID #5 tab predniSONE 10 mg PO DAILY #30 tab Budesonide-Formot 160-4.5 Mcg [Symbicort 160-4.5 Mcg Inhaler] 2 puff INHALATION RT-BID #1 puff Albuterol Inhaler [Ventolin Hfa Inhaler] 2 puff INHALATION RT-QID #1 puff Continue traZODone HCL [Desyrel] 100 mg PO HS Azithromycin [Zithromax Z-pack] See Taper PO DAILY Citalopram Hydrobromide [Citalopram HBr] 30 mg PO HS Acetaminophen Tab [Tylenol] 650 mg PO Q6H PRN PRN Reason: Fever Introvale 0.15-0.3mg 1 tab PO HS Discontinued methylPREDNISolone [Medrol Dose Pack] See Taper PO DIRECTED Discharge Medication List traZODone HCL [Desyrel] 100 mg PO HS 05/20/15 [History] Acetaminophen Tab [Tylenol] 650 mg PO Q6H PRN 09/15/19 [History] Azithromycin [Zithromax Z-pack] See Taper PO DAILY 09/15/19 [History] Citalopram Hydrobromide [Citalopram HBr] 30 mg PO HS 09/15/19 [History] Introvale 0.15-0.3mg 1 tab PO HS 09/15/19 [History] Albuterol Inhaler [Ventolin Hfa Inhaler] 2 puff INHALATION RT-QID #1 puff 09/18/19 [Rx] Budesonide-Formot 160-4.5 Mcg [Symbicort 160-4.5 Mcg Inhaler] 2 puff INHALATION RT-BID #1 puff 09/18/19 [Rx] Cefuroxime Axetil [Ceftin] 500 mg PO BID 3 Days #6 tab 09/18/19 [Rx] Hydroxychloroquine Sulfate [Plaquenil] 200 mg PO BID #5 tab 09/18/19 [Rx] Zinc Sulfate [Orazinc] 220 mg PO DAILY #10 cap 09/18/19 [Rx] predniSONE 10 mg PO DAILY #30 tab 09/18/19 [Rx] Follow up Appointment(s)/Referral(s): Shane Barr MD [STAFF PHYSICIAN] - 10/16/19 1:45 pm Cora Cowart MD [Primary Care Provider] - 1-2 days (office closed Please call to make appointment) Patient Instructions/Handouts: Viral Pneumonia (DC) Activity/Diet/Wound Care/Special Instructions: COVID-19 dc instructions including qurantine Discharge Disposition: HOME SELF-CARE
== END 2019-09-18 14:50 | disposition home or self-care (01) | DRG 177 ==
LOC: EC 21:07 → 4SSUR 22:42
PROVIDERS: ADMIT Hospitalist; ATTEND Hospitalist
DX: U07.1 COVID-19 (principal); J12.89 Other viral pneumonia; J45.21 Mild intermittent asthma with (acute) exacerbation; M19.90 Unspecified osteoarthritis, unspecified site; E66.9 Obesity, unspecified; F43.10 Post-traumatic stress disorder, unspecified; F41.9 Anxiety disorder, unspecified; R00.0 Tachycardia, unspecified; E86.0 Dehydration; Z88.5 Allergy status to narcotic agent; Z98.890 Other specified postprocedural states; Z68.36 Body mass index [BMI] 36.0-36.9, adult; Z79.899 Other long term (current) drug therapy
CPT/HCPCS: 36415; 71045; 71275; 80053; 81001; 82550; 82728; 83605; 83615; 83735; 84145; 84484; 85025; 85379; 85610; 85730; 86140; 87040; 87502; 87635; 93005; 94640; 96365; 99285

== ENCOUNTER 2019-10-16 15:15 | Emergency (ER) | payer BC ==
[2019-10-16 15:23] VITALS: TEMP 98.9
[2019-10-16] MEDS ORDERED: SODIUM CHLORIDE 0.9% 1,000 ML IV STA (16:15)
--- NOTE | 2019-10-16 16:41 | ED ---
SOB HPI - General Chief Complaint: Shortness of Breath Stated Complaint: SOB, tachycardia Time Seen by Provider: 10/16/19 16:00 Source: patient Mode of arrival: ambulatory Limitations: no limitations - History of Present Illness Initial Comments: 34-year-old female patient presents to the emergency department today for evaluation of shortness of breath. Patient states that she had a hospitalization was discharged on 09/18/2023, COVID-19. Patient states that over the last 2 weeks she's had increase in shortness of breath. States that over the last 2 days she developed a rash over her arms, neck, and legs. Patient states whenever she walks around or does any physical activities becomes very winded and her heart rate goes up. States she still has mild dry cough. She reports pain to the chest with breathing. Patient does currently take c ontrol. Denies any leg or calf swelling. Denies any calf pain. Denies current fever or chills. Denies history of DVT or pulmonary embolism. Patient denies any recent rash, abdominal pain, nausea, vomiting, diarrhea, constipation, back pain, numbness, tingling, dizziness, weakness, hematuria, dysuria, urinary urgency, urinary frequency, headache, visual changes, or any other complaints. - Related Data Home Medications Medication Instructions Recorded Confirmed traZODone HCL [Desyrel] 100 mg PO HS 05/20/15 09/15/19 Acetaminophen Tab [Tylenol] 650 mg PO Q6H PRN 09/15/19 09/15/19 Azithromycin [Zithromax Z-pack] See Taper PO DAILY 09/15/19 09/15/19 Citalopram Hydrobromide 30 mg PO HS 09/15/19 09/15/19 [Citalopram HBr] Introvale 0.15-0.3mg 1 tab PO HS 09/15/19 09/15/19 Previous Rx's Medication Instructions Recorded Albuterol Inhaler [Ventolin Hfa 2 puff INHALATION RT-QID #1 puff 09/18/19 Inhaler] Budesonide-Formot 160-4.5 Mcg 2 puff INHALATION RT-BID #1 puff 09/18/19 [Symbicort 160-4.5 Mcg Inhaler] Cefuroxime Axetil [Ceftin] 500 mg PO BID 3 Days #6 tab 09/18/19 Hydroxychloroquine Sulfate 200 mg PO BID #5 tab 09/18/19 [Plaquenil] Zinc Sulfate [Orazinc] 220 mg PO DAILY #10 cap 09/18/19 predniSONE 10 mg PO DAILY #30 tab 09/18/19 Allergies Allergy/AdvReac Type Severity Reaction Status Date / Time hydrocodone bitartrate AdvReac Nausea & Verified 10/16/19 15:24 [From Vicodin] Vomiting Review of Systems ROS Statement: Those systems with pertinent positive or pertinent negative responses have been documented in the HPI. ROS Other: All systems not noted in ROS Statement are negative. Past Medical History Past Medical History: Asthma, Osteoarthritis (OA) Additional Past Medical History / Comment(s): ovarian cyst, endomytriosis History of Any Multi-Drug Resistant Organisms: None Reported Past Surgical History: Orthopedic Surgery Additional Past Surgical History / Comment(s): right eye surg., arthroscopic knee surg. Past Anesthesia/Blood Transfusion Reactions: No Reported Reaction Past Psychological History: Anxiety, PTSD Smoking Status: Never smoker Past Alcohol Use History: Rare Past Drug Use History: None Reported - Past Family History Mother Family Medical History: No Reported History General Exam Limitations: no limitations General appearance: alert, in no apparent distress, other (This is a well- developed, well-nourished adult female patient in no acute distress. Vital signs upon presentation are temperature 98.9F, pulse 112, respirations 18, blood pressure 165/78, pulse ox 98% on room air.) Eye exam: Present: normal appearance, PERRL, EOMI. Absent: scleral icterus, conjunctival injection, periorbital swelling ENT exam: Present: normal exam, normal oropharynx, mucous membranes moist Respiratory exam: Present: normal lung sounds bilaterally. Absent: respiratory distress, wheezes, rales, rhonchi, stridor Cardiovascular Exam: Present: normal rhythm, tachycardia, normal heart sounds. Absent: systolic murmur, diastolic murmur, rubs, gallop, clicks GI/Abdominal exam: Present: soft, normal bowel sounds. Absent: distended, tenderness, guarding, rebound, rigid Neurological exam: Present: alert, oriented X3, CN II-XII intact Psychiatric exam: Present: normal affect, normal mood Skin exam: Present: warm, dry, intact, normal color, rash (There is general rash to the arms, legs, and neck. Erythematous lesions without vesicles or drainage. ) Course Vital Signs 10/16/19 10/16/19 10/16/19 15:19 17:00 17:30 Temperature 98.9 F Pulse Rate 112 H 88 89 Respiratory 18 17 16 Rate Blood Pressure 165/78 135/89 136/91 O2 Sat by Pulse 98 98 100 Oximetry Medical Decision Making - Medical Decision Making 34-year-old female patient diagnosed with rotavirus discharge from the hospital on 09/18/2019 presents to the emergency department today for evaluation of persistent shortness of breath and tachycardia. Patient physical exam did reve al clear equal lung sounds. She is mildly tachycardic with a heart rate of 112. Oxygen saturation 99% on room air. She does not appear to be in any respiratory distress, no accessory muscle use, no tachypnea. Labs reviewed and are relatively unremarkable. D-dimer was mildly elevated. CT angiography of the chest was obtained and shows no evidence for pulmonary embolism. There is some residual ground glass opacity to the left upper lobe but it is improved from her previous exam. I did discuss findings and results with the patient. She did see Dr. Humphreys are today who did give her prescription for Ventolin, Symbicort, and oral steroids. She is urged to continue these. She'll given a couple more days off work. She is instructed to follow up her primary care physician for recheck in 1-2 days. Return parameters were discussed in detail. She verbalizes understanding and agrees with this plan. - Lab Data Result diagrams: 10/16/19 16:34 10/16/19 16:34 Lab Results 10/16/19 10/16/19 10/16/19 Range/Units 16:34 16:34 16:34 WBC 8.1 (3.8-10.6) k/uL RBC 4.91 (3.80-5.40) m/uL Hgb 14.1 (11.4-16.0) gm/dL Hct 43.6 (34.0-46.0) % MCV 88.7 (80.0-100.0) fL MCH 28.7 (25.0-35.0) pg MCHC 32.3 (31.0-37.0) g/dL RDW 14.0 (11.5-15.5) % Plt Count 250 (150-450) k/uL Neutrophils % 76 % Lymphocytes % 14 % Monocytes % 4 % Eosinophils % 3 % Basophils % 1 % Neutrophils # 6.2 (1.3-7.7) k/uL Lymphocytes # 1.1 (1.0-4.8) k/uL Monocytes # 0.4 (0-1.0) k/uL Eosinophils # 0.2 (0-0.7) k/uL Basophils # 0.1 (0-0.2) k/uL PT 9.5 (9.0-12.0) sec INR 0.9 (<1.2) APTT 19.7 L (22.0-30.0) sec D-Dimer 1.22 H (<0.60) mg/L FEU Sodium 138 (137-145) mmol/L Potassium 4.3 (3.5-5.1) mmol/L Chloride 105 (98-107) mmol/L Carbon Dioxide 24 (22-30) mmol/L Anion Gap 9 mmol/L BUN 10 (7-17) mg/dL Creatinine 0.87 (0.52-1.04) mg/dL Est GFR (CKD-EPI)AfAm >90 (>60 ml/min/1.73 sqM) Est GFR (CKD-EPI)NonAf 87 (>60 ml/min/1.73 sqM) Glucose 85 (74-99) mg/dL Plasma Lactic Acid Yohannes (0.7-2.0) mmol/L Calcium 9.1 (8.4-10.2) mg/dL Total Bilirubin 0.3 (0.2-1.3) mg/dL AST 21 (14-36) U/L ALT 17 (4-34) U/L Alkaline Phosphatase 87 (38-126) U/L Troponin I (0.000-0.034) ng/mL Total Protein 6.9 (6.3-8.2) g/dL Albumin 4.2 (3.5-5.0) g/dL 10/16/19 10/16/19 Range/Units 16:34 16:34 WBC (3.8-10.6) k/uL RBC (3.80-5.40) m/uL Hgb (11.4-16.0) gm/dL Hct (34.0-46.0) % MCV (80.0-100.0) fL MCH (25.0-35.0) pg MCHC (31.0-37.0) g/dL RDW (11.5-15.5) % Plt Count (150-450) k/uL Neutrophils % % Lymphocytes % % Monocytes % % Eosinophils % % Basophils % % Neutrophils # (1.3-7.7) k/uL Lymphocytes # (1.0-4.8) k/uL Monocytes # (0-1.0) k/uL Eosinophils # (0-0.7) k/uL Basophils # (0-0.2) k/uL PT (9.0-12.0) sec INR (<1.2) APTT (22.0-30.0) sec D-Dimer (<0.60) mg/L FEU Sodium (137-145) mmol/L Potassium (3.5-5.1) mmol/L Chloride (98-107) mmol/L Carbon Dioxide (22-30) mmol/L Anion Gap mmol/L BUN (7-17) mg/dL Creatinine (0.52-1.04) mg/dL Est GFR (CKD-EPI)AfAm (>60 ml/min/1.73 sqM) Est GFR (CKD-EPI)NonAf (>60 ml/min/1.73 sqM) Glucose (74-99) mg/dL Plasma Lactic Acid Yohannes 1.4 (0.7-2.0) mmol/L Calcium (8.4-10.2) mg/dL Total Bilirubin (0.2-1.3) mg/dL AST (14-36) U/L ALT (4-34) U/L Alkaline Phosphatase (38-126) U/L Troponin I <0.012 (0.000-0.034) ng/mL Total Protein (6.3-8.2) g/dL Albumin (3.5-5.0) g/dL - EKG Data -: EKG Interpreted by Me EKG Comments: EKG obtained at 1656 shows normal sinus rhythm with a ventricular rate is 79, RI interval 158, QRS duration 80, QT 376, QTc 431. No evidence of ST elevation or depression. There is evidence for S1, Q3, T3. - Radiology Data Radiology results: report reviewed, image reviewed CT angiography of the chest for PE was obtained. Report was reviewed in its entirety. Impression by Dr. Grigsby shows no evident pulmonary embolism within the limitations of the exam. Improvement in patient's airspace disease is compared to prior exam. There is minimal ground glass opacity residually in the left upper lobe. Disposition Clinical Impression: Dyspnea Disposition: HOME SELF-CARE Condition: Good Instructions (If sedation given, give patient instructions): Dyspnea (ED) Additional Instructions: Use inhalers as directed. Follow up with the primary care physician for recheck in 1-2 days. Return to the emergency department for any new, worsening, or concerning symptoms. Is patient prescribed a controlled substance at d/c from ED?: No Referrals: Cora Cowart MD [Primary Care Provider] - 1-2 days Time of Disposition: 17:51
[2019-10-16 16:51] LABS: Basophils # (A) 0.1 k/uL (0-0.2); Basophils % (A) 1 %; Eosinophils # (A) 0.2 k/uL (0-0.7); Eosinophils % (A) 3 %; HCT 43.6 % (34.0-46.0); HGB 14.1 gm/dL (11.4-16.0); Lymphocytes # (A) 1.1 k/uL (1.0-4.8); Lymphocytes % (A) 14 %; MCH 28.7 pg (25.0-35.0); MCHC 32.3 g/dL (31.0-37.0); MCV 88.7 fL (80.0-100.0); Mean Platelet Volume 7.8; Monocytes # (A) 0.4 k/uL (0-1.0); Monocytes % (A) 4 %; Neutrophils # (A) 6.2 k/uL (1.3-7.7); Neutrophils % (A) 76 %; Platelet Count 250 k/uL (150-450); RBC 4.91 m/uL (3.80-5.40); WBC 8.1 k/uL (3.8-10.6)
[2019-10-16 17:05] LABS: ALT 17 U/L (4-34); AST 21 U/L (14-36); African American GFR (CKD) >90 (>60 ml/min/1.73 sqM); Albumin 4.2 g/dL (3.5-5.0); Alkaline Phosphatase 87 U/L (38-126); Anion Gap 9 mmol/L; Blood Urea Nitrogen 10 mg/dL (7-17); Calcium 9.1 mg/dL (8.4-10.2); Carbon Dioxide 24 mmol/L (22-30); Chloride 105 mmol/L (98-107); Glucose 85 mg/dL (74-99); Non-African American GFR(CKD) 87 (>60 ml/min/1.73 sqM); Potassium 4.3 mmol/L (3.5-5.1); Sodium 138 mmol/L (137-145); Total Bilirubin 0.3 mg/dL (0.2-1.3); Total Protein 6.9 g/dL (6.3-8.2)
[2019-10-16 17:11] LABS: INR 0.9 (<1.2)
[2019-10-16 17:12] LABS: Prothrombin Time 9.5 sec (9.0-12.0)
[2019-10-16 17:13] LABS: Partial Thromboplastin Time 19.7 sec (22.0-30.0)
[2019-10-16 17:15] LABS: D-Dimer 1.22 mg/L FEU (<0.60)
--- NOTE | 2019-10-16 17:42 | CT ---
EXAMINATION TYPE: CT chest angio for PE DATE OF EXAM: 10/16/2019 COMPARISON: CT angiogram of the chest dated 09/15/2019 HISTORY: SOB, elevated d-dimer, positive covid CT DLP: 480.3 mGycm Automated exposure control for dose reduction was used. CONTRAST: CT Chest for pulmonary embolism performed with with IV Contrast, patient injected with 78cc mL of Iso fawn 370. FINDINGS: LUNGS: The lungs are improved as compared to prior exam, only minimal groundglass opacity is residual the left upper lobe, there is no concerning parenchymal mass or nodule identified. There is no ple ural effusion or pneumothorax seen. The tracheobronchial tree is patent. MEDIASTINUM: There is somewhat limited enhancement of the pulmonary artery and its branches, there is no CT evidence for pulmonary embolism. There are no greater than 1 cm hilar or mediastinal lymph no massimo. No pericardial effusion is seen. AORTA: No additional significant abnormality is seen. OTHER: Small hiatal hernia noted. IMPRESSION: No evident pulmonary embolism within the limitations of the exam. Improvement in patient's airspace d isease as compared to prior exam
[2019-10-16 18:11] VITALS: BP 132/83; PULSE 88; RESP 17
== END 2019-10-16 18:05 | disposition home or self-care (01) ==
LOC: EC 15:15
DX: R06.00 Dyspnea, unspecified (principal); R91.8 Other nonspecific abnormal finding of lung field; R79.89 Other specified abnormal findings of blood chemistry; R00.0 Tachycardia, unspecified; R06.02 Shortness of breath; R07.1 Chest pain on breathing; F41.9 Anxiety disorder, unspecified; Z79.3 Long term (current) use of hormonal contraceptives; Z79.899 Other long term (current) drug therapy; Z88.6 Allergy status to analgesic agent
CPT/HCPCS: 99285; 96360; 36415; 93005; 85379; 80053; 83605; 84484; 85025; 85610; 85730; 71275; Q9967

== ENCOUNTER 2019-11-27 08:55 | Inpatient (IN) | payer BC ==
[2019-11-27] MEDS ORDERED: ASPIRIN 81 MG PO STA (09:05)
[2019-11-27] MEDS ORDERED: NITROGLYCERIN OINT 1 INCH/GM PACKET TOPICAL STA (09:11)
--- NOTE | 2019-11-27 09:26 | ED ---
Chest Pain HPI - General Source: patient Mode of arrival: ambulatory Limitations: no limitations <Jenna Johnston - Last Filed: 11/27/19 10:24> <Dangelo Avery - Last Filed: 11/27/19 10:53> - General Chief Complaint: Chest Pain Stated Complaint: chest pain Time Seen by Provider: 11/27/19 09:05 - History of Present Illness Initial Comments: 34yo obese female who has Covid-19 infection in September presenting today for cc of squeezing chest pain since last night, patient admits to consistent yet not constant squeezing sensation in chest since yesterday evening. She denies pleuritic or sharp CP. Denies SOB, hemoptysis, history of PE/DVT, recent surgery or immobilization. Patient denies smoking history of family history of premature CAD. Patient denies fevers, cough, URI symptoms. Patient denies cough. Patient denies nausea, epigastric pain. Patient admits to concern for STD and would also like that evaluated as well, denies abdominal pain. (Jenna Johnston) - Related Data Home Medications Medication Instructions Recorded Confirmed traZODone HCL [Desyrel] 100 mg PO DAILY 05/20/15 11/27/19 Acetaminophen Tab [Tylenol] 650 mg PO Q6H PRN 09/15/19 11/27/19 Citalopram Hydrobromide 30 mg PO DAILY 09/15/19 11/27/19 [Citalopram HBr] Introvale 0.15-0.3mg 1 tab PO DAILY 09/15/19 11/27/19 Albuterol Inhaler [Ventolin Hfa 2 puff INHALATION RT-QID PRN 11/27/19 11/27/19 Inhaler] Previous Rx's Medication Instructions Recorded Budesonide-Formot 160-4.5 Mcg 2 puff INHALATION RT-BID #1 puff 09/18/19 [Symbicort 160-4.5 Mcg Inhaler] Allergies Allergy/AdvReac Type Severity Reaction Status Date / Time hydrocodone bitartrate AdvReac Nausea & Verified 11/27/19 10:01 [From Vicodin] Vomiting Review of Systems ROS Other: All systems not noted in ROS Statement are negative. <Jenna Johnston - Last Filed: 11/27/19 10:24> ROS Other: All systems not noted in ROS Statement are negative. <Dangelo Avery - Last Filed: 11/27/19 10:53> ROS Statement: Those systems with pertinent positive or pertinent negative responses have been documented in the HPI. EKG Findings - EKG Comments: EKG Findings:: Ventricular rate 102 bpm, OR interval 168 ms, QR alevism 86 ms, QT/QTC 340/443. This is sinus tachycardia there is nonspecific T-wave abnormality. No ST elevation or depression <Jenna Johnston - Last Filed: 11/27/19 10:24> Past Medical History Past Medical History: Asthma, Osteoarthritis (OA) Additional Past Medical History / Comment(s): ovarian cyst, endomytriosis History of Any Multi-Drug Resistant Organisms: None Reported Past Surgical History: Orthopedic Surgery Additional Past Surgical History / Comment(s): right eye surg., arthroscopic knee surg. Past Anesthesia/Blood Transfusion Reactions: No Reported Reaction Past Psychological History: Anxiety, PTSD Smoking Status: Never smoker Past Alcohol Use History: Rare Past Drug Use History: None Reported - Past Family History Mother Family Medical History: No Reported History <Jenna Johnston - Last Filed: 11/27/19 10:24> General Exam Limitations: no limitations <Jenna Johnston - Last Filed: 11/27/19 10:24> - General Exam Comments Initial Comments: General: The patient is awake and alert, in no distress, and does not appear acutely ill. Eye: Pupils are equal, round and reactive to light, extra-ocular movements are intact. No nystagmus. There is normal conjunctiva bilaterally. No signs of icterus. Ears, nose, mouth and throat: There are moist mucous membranes and no oral l esions. Neck: The neck is supple, there is no tenderness or JVD. Cardiovascular: There is a regular rate and rhythm. No murmur, rub or gallop is appreciated. Respiratory: Lungs are clear to auscultation, respirations are non-labored, breath sounds are equal. No wheezes, stridor, rales, or rhonchi. Musculoskeletal: Normal ROM, no tenderness. Strength 5/5. Sensation intact. Radial pulses equal bilaterally 2+. Pelvic: No cervical lesion noted, os closed. No cervical motion tenderness, sc ant amount of discharge without odor. Neurological: A&O x 3. CN II-XII intact grossly, There are no obvious motor or sensory deficits. Coordination appears grossly intact. Speech is normal. Skin: Skin is warm and dry and no rashes or lesions are noted. No calf pain or swelling. No LE edema. Psychiatric: Cooperative, appropriate mood & affect, normal judgment. (Jenna Johnston) Course <Dangelo Avery - Last Filed: 11/27/19 10:53> Vital Signs 11/27/19 11/27/19 09:00 10:40 Temperature 98.5 F Pulse Rate 62 105 H Respiratory 18 18 Rate Blood Pressure 141/90 127/78 O2 Sat by Pulse 99 98 Oximetry - Reevaluation(s) Reevaluation #1: 11/27/19 10:53 PA supervision: I personally evaluate this case patient presented with complaints of chest pain. Initial workup was negative however the pain is consistent with that associated with ACS. Patient be admitted the case was discussed with Dr. Fountain. (Dangelo Avery) Chest Pain MDM <Jenna Johnston - Last Filed: 11/27/19 10:24> - MDM 34yo yo female presenting today for cc of left sided chest pressure. Pt obese. Nonspecific T-wave abnormality. Patient Not hypoxic, HR WNL on monitor and on arrival. Patient initial troponin (-). SOme relief with nitro paste, provided morphine in the ER. Given patient persistent pain patient will be admitted for serial troponins and monitoring. Patient is agreeable to admission and care plan. (Jenna Johnston) Disposition Is patient prescribed a controlled substance at d/c from ED?: No Time of Disposition: 10:23 Decision to Admit Reason: Admit from EC Decision Date: 11/27/19 Decision Time: 10:23 <Jenna Johnston - Last Filed: 11/27/19 10:24> <Dnagelo Avery - Last Filed: 11/27/19 10:53> Clinical Impression: Chest pressure Disposition: ADMITTED IP TO THIS HOSP Condition: Stable
[2019-11-27 09:51] LABS: Appearance,Urine Clear (Clear); Bilirubin,Urine Negative (Negative); Blood,Urine Negative (Negative); Color,Urine Yellow; Glucose,Urine (UA) Negative (Negative); Ketones,Urine Negative (Negative); Leukocyte Esterase,Urine Negative (Negative); Nitrite,Urine Negative (Negative); PH, Urine 6.5 (5.0-8.0); Protein,Urine Negative (Negative); Specific Gravity,Urine 1.018 (1.001-1.035); Urobilinogen,Urine <2.0 mg/dL (<2.0)
[2019-11-27 09:53] LABS: ALT 22 U/L (4-34); AST 29 U/L (14-36); African American GFR (CKD) >90 (>60 ml/min/1.73 sqM); Albumin 4.3 g/dL (3.5-5.0); Alkaline Phosphatase 105 U/L (38-126); Anion Gap 7 mmol/L; Blood Urea Nitrogen 10 mg/dL (7-17); Calcium 9.1 mg/dL (8.4-10.2); Carbon Dioxide 26 mmol/L (22-30); Chloride 105 mmol/L (98-107); Glucose 96 mg/dL (74-99); Non-African American GFR(CKD) >90 (>60 ml/min/1.73 sqM); Potassium 4.2 mmol/L (3.5-5.1); Sodium 138 mmol/L (137-145); Total Bilirubin 0.3 mg/dL (0.2-1.3)
[2019-11-27 09:59] LABS: Basophils # (A) 0.1 k/uL (0-0.2); Basophils % (A) 1 %; Eosinophils # (A) 0.3 k/uL (0-0.7); Eosinophils % (A) 4 %; HCT 43.9 % (34.0-46.0); HGB 14.9 gm/dL (11.4-16.0); Lymphocytes % (A) 25 %; MCH 30.2 pg (25.0-35.0); MCV 88.9 fL (80.0-100.0); Mean Platelet Volume 7.9; Monocytes # (A) 0.5 k/uL (0-1.0); Monocytes % (A) 6 %; Neutrophils # (A) 5.1 k/uL (1.3-7.7); Neutrophils % (A) 63 %; Platelet Count 275 k/uL (150-450); RBC 4.93 m/uL (3.80-5.40); RDW 13.8 % (11.5-15.5); WBC 8.1 k/uL (3.8-10.6)
--- NOTE | 2019-11-27 10:00 | XR ---
EXAMINATION TYPE: XR chest 2V DATE OF EXAM: 11/27/2019 COMPARISON: 09/17/2019 INDICATION: Chest pain TECHNIQUE: Frontal and lateral views of the chest are obtained. FINDINGS: The heart size is normal. The pulmonary vasculature is normal. The lungs are clear. IMPRESSION: 1. No acute pulmonary process.
[2019-11-27 10:02] LABS: INR 0.9 (<1.2); Prothrombin Time 9.4 sec (9.0-12.0)
[2019-11-27] MEDS ORDERED: HYDROmorphone 0.5 MG/0.5 ML SYRINGE IVP STA (10:04)
[2019-11-27 10:11] LABS: Partial Thromboplastin Time 21.4 sec (22.0-30.0)
[2019-11-27] MEDS ORDERED: NITROGLYCERIN SL TABS 0.4 MG TAB SUBLINGUAL PRN (10:22)
--- NOTE | 2019-11-27 12:26 | CT ---
EXAMINATION TYPE: CT chest angio for PE DATE OF EXAM: 11/27/2019 COMPARISON: October 16, 2019 HISTORY: elevated d dimer CT DLP: 472.1 mGycm CONTRAST: CT chest with contrast and 3D reconstruction with MIP imaging is performed with IV Contrast, patient injected with 100 mL of Isovue 370. Contrast-enhanced CT of the chest was performed through the course of the pulmonary arteries with gus g and mediastinal window settings submitted. 3D reconstruction with MIP imaging was also performed. PULMONARY ARTERIES: The pulmonary arteries and their major tributaries are patent. I do not see martha dence for sizable filling defect to suggest pulmonary embolic process. LUNGS: The lungs are clear and free of infiltrate. No evidence for atelectasis. No pulmonary nodule or mass is detected. No pleural effusion. MEDIASTINUM: Thoracic aorta is of normal caliber,however, evaluation is limited given timing of the contrast bolus. If there is concern for thoracic aortic pathology consider ANNAMARIA. Correlate clinicall y . The heart is not enlarged. No evidence for mediastinal mass. No mediastinal lymph nodes greater than 1cm. HILAR STRUCTURES: No evidence for mass. No hilar lymph nodes greater than 1 cm. UPPER ABDOMEN: No significant abnormality is seen. IMPRESSION: 1. No evidence for Pulmonary embolism at this time. No airspace disease.
[2019-11-27] MEDS ORDERED: ONDANSETRON 4 MG/2 ML VIAL IVP PRN (13:16)
[2019-11-27] MEDS: MORPHINE SULFATE 2 MG/ML SYRINGE IVP PRN ×2 (13:28→16:57)
[2019-11-27] MEDS ORDERED: ACETAMINOPHEN TAB 325 MG TAB PO PRN (16:38)
[2019-11-27] MEDS ORDERED: ALBUTEROL NEBULIZED 2.5 MG/3 ML INHALATION PRN (16:38)
[2019-11-27] MEDS: traZODone HCL 100 MG TAB PO SCH (17:11)
[2019-11-27] MEDS: CITALOPRAM HYDROBROMIDE 10 MG TAB PO SCH (17:11)
[2019-11-27] MEDS: SODIUM CHLORIDE 0.9% 1,000 ML IV SCH (17:11)
[2019-11-27] MEDS: ETHINYL ESTRADIOL PO SCH (17:12)
[2019-11-27] MEDS: LEVONORGESTREL PO SCH (17:12)
[2019-11-27] MEDS: SYMBICORT 160-4.5 MCG INHALER INHALATION SCH ×2 (19:09→20:14)
--- NOTE | 2019-11-27 23:08 | P.HPIM ---
History of Present Illness H&P Date: 11/27/19 Chief Complaint: Chest pain Patient is a 34-year-old male with a known history of asthma, osteoarthritis, anxiety, PTSD and recent history of COVID-19 infection in September presented to ER with complaints of chest pain. Chest pain is mainly mid left retrosternal and radiating to the back. No complaints of right or left arm radiation up to the jaw. Associated with nausea and dizziness. No diaphoresis. Patient was given nitroglycerin which she states that causing her headache. No orthopnea or PND. Patient is mainly squeezing like sensation in the chest. Denies any sharp pain with deep breathing. Sometimes pain gets worse with movement.Denied any cough or sputum production. No fever no chills. No nausea vomiting or abdominal pain or diarrhea. D-dimer was found to be 1.28 on admission.. Patient did have d-dimer elevation during COVID-[address] angiogram showed no evidence of pulmonary embolism. No airspace disease. Denied any reproducible chest pain. Chest x-ray showed no acute cardiopulmonary process EKG showed sinus tachycardia. Patient states that she has been stressful recently and started back working after 2 months. worked last night. Troponin x3 is negative. Other laboratory data reviewed. UA negative. No l eukocytosis. Review of Systems Constitutional: Patient denies any fever or chills . No generalized weakness or weight loss. Abdomen: Patient denied nausea vomiting and diarrhea and abdominal pain. Cardiovascular: Positive chest pain. no short of breath no palpitations. Respiratory: patient denied any cough is from production. No shortness of breath Neurologic: Patient denied any numbness or tingling headache. Musculoskeletal: Patient denies any complaints of joint swelling or deformity. Skin: Negative Psychiatric: Negative Endocrine: No heat or cold intolerance. No recent weight gain. Genitourinary: No dysuria or hematuria. All other 14 point ROS negative except the above Past Medical History Past Medical History: Asthma, Osteoarthritis (OA) Additional Past Medical History / Comment(s): ovarian cyst, endomytriosis History of Any Multi-Drug Resistant Organisms: None Reported Past Surgical History: Orthopedic Surgery Additional Past Surgical History / Comment(s): right eye surg., arthroscopic knee surg. Past Anesthesia/Blood Transfusion Reactions: No Reported Reaction Past Psychological History: Anxiety, PTSD Smoking Status: Never smoker Past Alcohol Use History: Rare Past Drug Use History: None Reported - Past Family History Father Family Medical History: AFIB Mother Family Medical History: No Reported History Additional Family Medical History / Comment(s): Mother is healthy Medications and Allergies Home Medications Medication Instructions Recorded Confirmed Type traZODone HCL [Desyrel] 100 mg PO DAILY 05/20/15 11/27/19 History Acetaminophen Tab [Tylenol] 650 mg PO Q6H PRN 09/15/19 11/27/19 History Citalopram Hydrobromide 30 mg PO DAILY 09/15/19 11/27/19 History [Citalopram HBr] Introvale 0.15-0.3mg 1 tab PO DAILY 09/15/19 11/27/19 History Budesonide-Formot 160-4.5 Mcg 2 puff INHALATION RT-BID #1 puff 09/18/19 11/27/19 Rx [Symbicort 160-4.5 Mcg Inhaler] Albuterol Inhaler [Ventolin Hfa 2 puff INHALATION RT-QID PRN 11/27/19 11/27/19 History Inhaler] Allergies Allergy/AdvReac Type Severity Reaction Status Date / Time hydrocodone bitartrate AdvReac Nausea & Verified 11/27/19 10:01 [From Vicodin] Vomiting Physical Exam Vitals: Vital Signs Temp Pulse Resp BP BP Pulse Ox 11/27/19 15:24 16 136/68 96 11/27/19 15:00 98 F 94 16 115/78 98 11/27/19 14:00 87 16 113/74 98 11/27/19 13:00 92 18 127/70 94 L 11/27/19 12:00 105 H 16 134/82 98 11/27/19 11:00 108 H 16 127/78 96 11/27/19 10:40 105 H 18 127/78 98 11/27/19 10:00 108 H 16 137/95 98 11/27/19 09:16 105 H 15 145/95 100 11/27/19 09:00 98.5 F 62 18 141/90 99 Intake and Output 11/27/19 11/27/19 11/27/19 06:59 14:59 22:59 Other: Weight 98.883 kg PHYSICAL EXAMINATION: Patient is lying in the bed comfortably, no acute distress, awake alert and oriented.. HEENT: Normocephalic. Neck is supple. Pupils reactive. Nostrils clear. Oral cavity is moist. Ears reveal no drainage. Neck reveals no JVD, carotid bruits, or thyromegaly. CHEST EXAMINATION: Trachea is central. Symmetrical expansion. Lung stoner clear to auscultation and percussion. CARDIAC: Normal S1, S2 with no gallops. No murmurs ABDOMEN: Soft. Bowel sounds normal. No organomegaly. No abdominal bruits. Extremities: reveal no edema. No clubbing or cyanosis Neurologically awake, alert, oriented x3 with well-coordinated movements. No focal deficits noted Skin: No rash or skin lesions. Psychiatric: Coperative. Nonsuicidal Musculoskeletal: No joint swelling or deformity. Normal range of motion. Results CBC & Chem 7: 11/27/19 09:30 11/27/19 09:30 Labs: Abnormal Lab Results - Last 24 Hours (Table) 11/27/19 11/27/19 Range/Units 09:30 09:30 APTT 21.4 L (22.0-30.0) sec D-Dimer 1.28 H (<0.60) mg/L FEU Microbiology - Last 24 Hours (Table) 11/27/19 10:23 Genital Culture - Preliminary Cervix Thrombosis Risk Factor Assmnt - DVT/VTE Prophylaxis DVT/VTE Prophylaxis: Pharmacologic Prophylaxis ordered - Choose All That Apply Any of the Below Risk Factors Present?: Yes Each Factor Represents 1 point: Obesity (BMI >25) Other congenital or acquired thrombophilia - If yes, enter type in comment: No Thrombosis Risk Factor Assessment Total Risk Factor Score: 1 Thrombosis Risk Factor Assessment Level: Low Risk Assessment and Plan Assessment: Atypical chest pain. Rule out ACS. Elevated d-dimer without evidence of pulmonary embolism in the CTA Recent COVID-19 viral infection in September 2019 Morbid obesity with a BMI 37.4 History of asthma Anxiety, PTSD DVT prophylaxis with heparin subcu Plan: Patient will be continued pain management with morphine. Gentle IV hydration and telemetry monitoring. Troponin x3-. CTA negative for pulmonary embolism. Will check TSH and CRP levels. Continue with GI prophylaxis with PPI and DVT prophylaxis. Cardiology was consulted. Further recommendations based on the clinical course. Time with Patient: Greater than 30
[2019-11-28] MEDS: SODIUM CHLORIDE 0.9% 1,000 ML IV SCH (06:11)
[2019-11-28] MEDS: PANTOPRAZOLE 40 MG TABLET PO SCH (06:11)
[2019-11-28] MEDS: MORPHINE SULFATE 2 MG/ML SYRINGE IVP PRN (06:53)
[2019-11-28] MEDS: SYMBICORT 160-4.5 MCG INHALER INHALATION SCH ×2 (08:43→19:44)
[2019-11-28] MEDS ORDERED: ASPIRIN 325 MG TAB PO SCH (09:00)
[2019-11-28] MEDS: CITALOPRAM HYDROBROMIDE 10 MG TAB PO SCH (09:06)
[2019-11-28] MEDS: traZODone HCL 100 MG TAB PO SCH (09:06)
[2019-11-28] MEDS: ETHINYL ESTRADIOL PO SCH (09:08)
[2019-11-28] MEDS: LEVONORGESTREL PO SCH (09:08)
--- NOTE | 2019-11-28 09:57 | P.CRDCN ---
History of Present Illness Consult date: 11/28/19 Consult reason: chest pain History of present illness: History of present illness: This is a 34-year-old female with past medical history of asthma, osteoarthritis, anxiety, PTSD and recent history of COVID-19 infection in September. 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 She has never seen a binding cementer french cord. Patient complains of mid sternal chest pain at the left sternal border that started on Saturday that comes and goes. It became much worse on evening when she was working. Sometimes it hurts when he takes a deep breath. She describes it as a 10 out of 10. It radiates to her back and sometimes feels like a squeezing or pressure type. She denies radiation to the neck or arms. She has some shortness of breath at rest and with activity which has been going on since she had Covid pneumonitis. She denies having any wheezing, no fever or chills. She is a nonsmoker. Her mother has history of hypertension and father has history of atrial fibrillation. No f amily history of coronary artery disease. EKG is a sinus rhythm. Chest x-ray showed no acute abnormality. D-dimer was elevated patient underwent CT of the chest that was negative for pulmonary embolism and no airspace disease. Troponins are negative on 3 draws. Patient was also worked up for possible STD in the emergency center. Review Of Systems: Constitutional: No fever, no chills. No weakness, fatigue or lethargy. EENT: No headache. No blurred vision or double vision, no loss of vision. No loss of Hearing, no dizziness. No nasal drainage or congestion. No epistaxis. No sore throat. Lungs: No shortness of breath, cough, no sputum production. No wheezing. Cardiovascular: reports chest pain, no lower extremity edema. No palpitations. No paroxysmal nocturnal dyspnea. No orthopnea. No lightheadedness or dizziness. No syncopal episodes. Abdominal: No abdominal pain. No nausea, vomiting. No diarrhea. No constipation. No bloody or tarry stools. No loss of appetite. Genitourinary: No dysuria, increased frequency, urgency. No urinary retention. Musculoskeletal: No myalgias. No muscle weakness, no gait dysfunction, no frequent falls. No back pain. No neck pain. Integumentary: No wounds, no lesions. No rash or pruritus. No unusual bruisin g. Neurologic: No aphasia. No facial droop. No change in mentation. No head injury. No headache. No paralysis. No paresthesia. Psychiatric: No depression. No anxiety. No mood swings. Endocrine: No abnormal blood sugars. No weight change. No excessive sweating or thirst. No weight change. Physical examination: Gen: This is a a 34-year-old obese female. She is resting bed appears to be comfortable and in no acute distress. VS: Afebrile, heart rate 86, blood pressure 120/74, pulse ox 84% on room air. HEENT: Head is atraumatic, normocephalic. Pupils equal, round. Sclerae is anicteric. NECK: Supple. No JVD. No lymphadenopathy. No thyromegaly. LUNGS: Clear to auscultation. No wheezes or rhonchi. No intercostal retractions. HEART: Regular rate and rhythm. No murmur. ABDOMEN: Soft. Bowel sounds are present. No masses. No tenderness. EXTREMITIES: No pedal edema. No calf tenderness. Dorsalis pedis +2 bilaterally. NEUROLOGICAL: Patient is awake, alert and oriented x3. Cranial nerves 2 through 12 are grossly intact. Assessment: Chest pain with negative troponins. Acute coronary syndrome ruled out History of mild intermittent asthma, stable Generalized anxiety disorder and PTSD History of Covid 19 infection in September. Repeat Covid 19 testing negative Plan: Obtain 2-D echocardiogram and Doppler study to assess cardiac structure and function Increase activity and monitor chest pain Possible outpatient stress test Further recommendations based on clinical course Thank you kindly for this consultation Nurse practitioner note has been reviewed, I agree with documented findings and plan of care. Patient was seen and examined. Past Medical History Past Medical History: Asthma, Osteoarthritis (OA) Additional Past Medical History / Comment(s): ovarian cyst, endomytriosis History of Any Multi-Drug Resistant Organisms: None Reported Past Surgical History: Orthopedic Surgery Additional Past Surgical History / Comment(s): right eye surg., arthroscopic knee surg. Past Anesthesia/Blood Transfusion Reactions: No Reported Reaction Past Psychological History: Anxiety, PTSD Smoking Status: Never smoker Past Alcohol Use History: Rare Past Drug Use History: None Reported - Past Family History Father Family Medical History: AFIB Mother Family Medical History: No Reported History Additional Family Medical History / Comment(s): Mother is healthy Medications and Allergies Home Medications Medication Instructions Recorded Confirmed Type traZODone HCL [Desyrel] 100 mg PO DAILY 05/20/15 11/27/19 History Acetaminophen Tab [Tylenol] 650 mg PO Q6H PRN 09/15/19 11/27/19 History Citalopram Hydrobromide 30 mg PO DAILY 09/15/19 11/27/19 History [Citalopram HBr] Introvale 0.15-0.3mg 1 tab PO DAILY 09/15/19 11/27/19 History Budesonide-Formot 160-4.5 Mcg 2 puff INHALATION RT-BID #1 puff 09/18/19 11/27/19 Rx [Symbicort 160-4.5 Mcg Inhaler] Albuterol Inhaler [Ventolin Hfa 2 puff INHALATION RT-QID PRN 11/27/19 11/27/19 History Inhaler] Allergies Allergy/AdvReac Type Severity Reaction Status Date / Time hydrocodone bitartrate AdvReac Nausea & Verified 11/27/19 10:01 [From Vicodin] Vomiting Physical Exam Vitals: Vital Signs Temp Pulse Pulse Resp BP BP Pulse Ox 11/28/19 08:00 98.5 F 86 20 120/74 94 L 11/28/19 03:15 98.7 F 72 18 126/85 97 11/27/19 23:10 98 F 73 16 127/75 95 11/27/19 20:15 98.1 F 72 18 131/72 95 11/27/19 15:24 16 136/68 96 11/27/19 15:00 98 F 94 16 115/78 98 11/27/19 14:00 87 16 113/74 98 11/27/19 13:00 92 18 127/70 94 L 11/27/19 12:00 105 H 16 134/82 98 11/27/19 11:00 108 H 16 127/78 96 11/27/19 10:40 105 H 18 127/78 98 11/27/19 10:00 108 H 16 137/95 98 Intake and Output 11/27/19 11/28/19 11/28/19 22:59 06:59 14:59 Other: Voiding Method Toilet Weight 102.5 kg Results 11/27/19 09:30 11/27/19 09:30 Cardiac Enzymes 11/27/19 11/27/19 11/27/19 Range/Units 09:30 09:30 16:26 AST 29 (14-36) U/L Troponin I <0.012 <0.012 (0.000-0.034) ng/mL 11/27/19 Range/Units 21:33 AST (14-36) U/L Troponin I <0.012 (0.000-0.034) ng/mL Coagulation 11/27/19 Range/Units 09:30 PT 9.4 (9.0-12.0) sec APTT 21.4 L (22.0-30.0) sec Lipids 11/27/19 Range/Units 09:30 Triglycerides 156 H (<150) mg/dL Cholesterol 193 (<200) mg/dL HDL Cholesterol 56 (40-60) mg/dL CBC 11/27/19 Range/Units 09:30 WBC 8.1 (3.8-10.6) k/uL RBC 4.93 (3.80-5.40) m/uL Hgb 14.9 (11.4-16.0) gm/dL Hct 43.9 (34.0-46.0) % Plt Count 275 (150-450) k/uL Comprehensive Metabolic Panel 11/27/19 Range/Units 09:30 Sodium 138 (137-145) mmol/L Potassium 4.2 (3.5-5.1) mmol/L Chloride 105 (98-107) mmol/L Carbon Dioxide 26 (22-30) mmol/L BUN 10 (7-17) mg/dL Creatinine 0.78 (0.52-1.04) mg/dL Glucose 96 (74-99) mg/dL Calcium 9.1 (8.4-10.2) mg/dL AST 29 (14-36) U/L ALT 22 (4-34) U/L Alkaline Phosphatase 105 (38-126) U/L Total Protein 7.0 (6.3-8.2) g/dL Albumin 4.3 (3.5-5.0) g/dL Current Medications Generic Name Dose Route Start Last Admin Trade Name Freq PRN Reason Stop Dose Admin Acetaminophen 650 mg 11/27/19 16:38 11/27/19 16:56 Tylenol Tab PO 650 mg Q6H PRN Administration Pain or Fever > 100.5 Albuterol Sulfate 2.5 mg 11/27/19 16:38 Ventolin Nebulized INHALATION RT-QID PRN Shortness Of Breath Aspirin 325 mg 11/28/19 09:00 11/28/19 09:06 Aspirin PO 325 mg DAILY FABIEN Administration Budesonide/Formoterol Fumarate 2 puff 11/27/19 20:00 11/28/19 08:43 Symbicort 160-4.5 Mcg Inhaler INHALATION 2 puff RT-BID FABIEN Administration Citalopram Hydrobromide 30 mg 11/27/19 16:45 11/28/19 09:06 Celexa PO 30 mg DAILY FABIEN Administration Sodium Chloride 1,000 mls @ 75 mls/hr 11/27/19 16:45 11/28/19 06:11 Saline 0.9% IV Not Given .[id number] [facility] Morphine Sulfate 2 mg 11/27/19 13:15 11/28/19 06:53 Morphine Sulfate (Inj) IVP 2 mg Q4H PRN Administration Pain/Discomfort Nitroglycerin 0.4 mg 11/27/19 10:22 Nitrostat SUBLINGUAL Q5M PRN Chest Pain Non-Formulary Medication 1 tab 11/27/19 16:45 11/28/19 09:08 Introvale 0.15-0.3mg PO Not Given DAILY [facility] Ondansetron HCl 4 mg 11/27/19 13:16 11/27/19 13:29 Zofran IVP 4 mg Q8H PRN Administration Nausea Pantoprazole Sodium 40 mg 11/28/19 07:30 11/28/19 06:11 Protonix PO Not Given AC-BRKFST [facility] Trazodone HCl 100 mg 11/27/19 16:45 11/28/19 09:06 Desyrel PO 100 mg DAILY [facility] Administration Intake and Output 11/27/19 11/28/19 11/28/19 22:59 06:59 14:59 Other: Voiding Method Toilet Weight 102.5 kg 11/27/19 09:30 11/27/19 09:30
--- NOTE | 2019-11-28 15:01 | ECHOF ---
Referral Reason:LVF MEASUREMENTS -------- HEIGHT: 160.0 cm WEIGHT: 98.9 kg BP: RVIDd: 2.1 cm (< 3.3) IVSd: 1.4 cm (0.6 - 1.1) LVIDd: 4.8 cm (3.9 - 5.3) LVPWd: 1.1 cm (0.6 - 1.1) IVSs: 1.7 cm LVIDs: 2.9 cm LVPWs: 1.9 cm Ao Diam: 2.8 cm (2.0 - 3.7) AV Cusp: 2.1 cm (1.5 - 2.6) LA Diam: 2.2 cm (2.7 - 3.8) MV EXCURSION: 16.399 mm (> 18.000) MV EF SLOPE: 109 mm/s (70 - 150) EPSS: 0.6 cm MV E Solitario: 0.90 m/s MV DecT: 277 ms MV A Solitario: 0.67 m/s MV E/A Ratio: 1.33 RAP: 5.00 mmHg RVSP: 15.73 mmHg FINDINGS -------- Sinus rhythm. This was a technically adequate study. The left ventricular size is normal. There is mild concentric left ventricular hypertrophy. Overa ll left ventricular systolic function is normal with, an EF between 55 - 60 %. The right ventricle is normal in size. The left atrial size is normal. The right atrial size is normal. The aortic valve is trileaflet and appears structurally normal. The mitral valve is normal. There is trace mitral regurgitation. The tricuspid valve appears structurally normal. Trace tricuspid regurgitation present. Right liane tricular systolic pressure is normal at < 35 mmHg. There is no pulmonic regurgitation present. The aortic root size is normal. Normal inferior vena cava with normal inspiratory collapse consistent with estimated right atrial pre ssure of 5 mmHg. There is no pericardial effusion. CONCLUSIONS -------- 1. Sinus rhythm. 2. This was a technically adequate study. 3. The left ventricular size is normal. 4. There is mild concentric left ventricular hypertrophy. 5. Overall left ventricular systolic function is normal with, an EF between 55 - 60 %. 6. The right ventricle is normal in size. 7. The left atrial size is normal. 8. The right atrial size is normal. 9. The aortic valve is trileaflet and appears structurally normal. 10. The mitral valve is normal. 11. There is trace mitral regurgitation. 12. The tricuspid valve appears structurally normal. 13. Trace tricuspid regurgitation present. 14. Right ventricular systolic pressure is normal at < 35 mmHg. 15. There is no pulmonic regurgitation present. 16. The aortic root size is normal. 17. Normal inferior vena cava with normal inspiratory collapse consistent with estimated right atrial pressure of 5 mmHg. 18. There is no pericardial effusion. PLANT ENGINEERING MANAGER: Christen Berumen RDCS
[2019-11-28] MEDS: ENOXAPARIN 40 MG/0.4 ML SYRINGE SQ SCH (18:09)
[2019-11-29] MEDS: PANTOPRAZOLE 40 MG TABLET PO SCH (06:19)
[2019-11-29] MEDS: SYMBICORT 160-4.5 MCG INHALER INHALATION SCH ×2 (07:45→19:02)
[2019-11-29] MEDS: ASPIRIN 81 MG PO SCH (08:46)
[2019-11-29] MEDS ORDERED: IBUPROFEN 400 MG TAB PO PRN (08:46)
[2019-11-29] MEDS: CITALOPRAM HYDROBROMIDE 10 MG TAB PO SCH (08:46)
[2019-11-29] MEDS: traZODone HCL 100 MG TAB PO SCH (08:46)
[2019-11-29] MEDS: ENOXAPARIN 40 MG/0.4 ML SYRINGE SQ SCH (08:56)
[2019-11-29] MEDS: ETHINYL ESTRADIOL PO SCH (08:57)
[2019-11-29] MEDS: LEVONORGESTREL PO SCH (08:57)
--- NOTE | 2019-11-29 11:20 | P.PN ---
Subjective Progress Note Date: 11/29/19 History of present illness: This is a 34-year-old female with past medical history of asthma, osteoarthritis, anxiety, PTSD and recent history of COVID-19 infection in September. 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 She has never seen a management accounts manager. Patient complains of mid sternal chest pain at the left sternal border that started on Saturday that comes and goes. It became much worse on evening when she was working. Sometimes it hurts when he takes a deep breath. She describes it as a 10 out of 10. It radiates to her b ack and sometimes feels like a squeezing or pressure type. She denies radiation to the neck or arms. She has some shortness of breath at rest and with activity which has been going on since she had Covid pneumonitis. She denies having any wheezing, no fever or chills. She is a nonsmoker. Her mother has history of hypertension and father has history of atrial fibrillation. No family history o f coronary artery disease. EKG is a sinus rhythm. Chest x-ray showed no acute abnormality. D-dimer was elevated patient underwent CT of the chest that was negative for pulmonary embolism and no airspace disease. Troponins are negative on 3 draws. Patient was also worked up for possible STD in the emergency center. 11/28: Patient has continued to experience chest pain was coming and going and is uncomfortable going home. Echocardiogram reveals EF of 55-60%, trace mitral regurgitation, trace tricuspid regurgitation. Patient has been updated on results of testing. She is agreeable to stay for stress echocardiogram tomorrow. Physical examination: Gen: This is a a 34-year-old obese female. She is resting bed appears to be comfortable and in no acute distress. VS: Afebrile, heart rate 78, blood pressure 145/77, pulse ox 95% on room air. HEENT: Head is atraumatic, normocephalic. Pupils equal, round. Sclerae is anicteric. NECK: Supple. No JVD. No lymphadenopathy. No thyromegaly. LUNGS: Clear to auscultation. No wheezes or rhonchi. No intercostal retractions. HEART: Regular rate and rhythm. No murmur. ABDOMEN: Soft. Bowel sounds are present. No masses. No tenderness. EXTREMITIES: No pedal edema. No calf tenderness. Dorsalis pedis +2 bilaterally. NEUROLOGICAL: Patient is awake, alert and oriented x3. Cranial nerves 2 through 12 are grossly intact. Assessment: Chest pain with negative troponins. Acute coronary syndrome ruled out History of mild intermittent asthma, stable Generalized anxiety disorder and PTSD History of Covid 19 infection in September. Repeat Covid 19 testing negative Plan: Stress echocardiogram ordered for Saturday If stress echocardiogram is normal, patient is cleared for discharged home Further recommendations based on clinical course Thank you kindly for this consultation Nurse practitioner note has been reviewed, I agree with documented findings and plan of care. Patient was seen and examined. Objective - Vital Signs Vital signs: Vital Signs Temp 98.4 F 11/29/19 04:00 Pulse 70 11/29/19 04:00 Resp 16 11/29/19 04:00 BP 139/82 11/29/19 04:00 Pulse Ox 94 L 11/29/19 04:00 Intake & Output 11/28/19 11/29/19 11/29/19 18:59 06:59 18:59 Intake Total 342 240 Balance 342 240 Weight 102 kg Intake: Oral 342 240 Other: Voiding Method Toilet Toilet # Voids 1 - Labs CBC & Chem 7: 11/27/19 09:30 11/27/19 09:30
[2019-11-29 17:17] LABS: Basophils % (A) 1 %; Eosinophils # (A) 0.3 k/uL (0-0.7); Eosinophils % (A) 4 %; HCT 42.4 % (34.0-46.0); HGB 13.6 gm/dL (11.4-16.0); Lymphocytes # (A) 1.7 k/uL (1.0-4.8); Lymphocytes % (A) 29 %; MCH 28.6 pg (25.0-35.0); MCV 89.4 fL (80.0-100.0); Mean Platelet Volume 7.8; Monocytes # (A) 0.4 k/uL (0-1.0); Monocytes % (A) 6 %; Neutrophils # (A) 3.5 k/uL (1.3-7.7); Neutrophils % (A) 58 %; Platelet Count 208 k/uL (150-450); RBC 4.74 m/uL (3.80-5.40); RDW 13.9 % (11.5-15.5)
[2019-11-29 17:32] LABS: African American GFR (CKD) >90 (>60 ml/min/1.73 sqM); Anion Gap 6 mmol/L; Blood Urea Nitrogen 12 mg/dL (7-17); C Reactive Protein 9.4 mg/L (<10.0); Calcium 9.1 mg/dL (8.4-10.2); Carbon Dioxide 26 mmol/L (22-30); Chloride 105 mmol/L (98-107); Glucose 112 mg/dL (74-99); Magnesium 1.9 mg/dL (1.6-2.3); Non-African American GFR(CKD) 82 (>60 ml/min/1.73 sqM); Potassium 4.6 mmol/L (3.5-5.1); Sodium 137 mmol/L (137-145)
[2019-11-29 18:13] LABS: Erythrocyte Sedimentation Rate 9 mm/hr (0-20)
[2019-11-29] MEDS: SODIUM CHLORIDE 0.9% 1,000 ML IV SCH (18:48)
--- NOTE | 2019-11-30 01:44 | P.PN ---
Subjective Progress Note Date: 11/28/19 Principal diagnosis: chest Pain Patient is a 34-year-old male with a known history of asthma, osteoarthritis, anxiety, PTSD and recent history of COVID-19 infection in September presented to ER with complaints of chest pain. Chest pain is mainly mid left retrosternal and radiating to the back. No complaints of right or left arm radiation up to the jaw. Associated with nausea and dizziness. No diaphoresis. Patient was given nitroglycerin which she states that causing her headache. No orthopnea or PND. Patient is mainly squeezing like sensation in the chest. Denies any sharp pain with deep breathing. Sometimes pain gets worse with movement.Denied any cough or sputum production. No fever no chills. No nausea vomiting or abdominal pain or diarrhea. D-dimer was found to be 1.28 on admission.. Patient did have d-dimer elevation during COVID-[address] angiogram showed no evidence of pulmonary embolism. No airspace disease. Denied any reproducible chest pain. Chest x-ray showed no acute cardiopulmonary process EKG showed sinus tachycardia. Patient states that she has been stressful recently and started back working after 2 months. worked last night. Troponin x3 is negative. Other laboratory data reviewed. UA negative. No leukocytosis. 11/28/2019 Patient is currently complaining of chest pain but improved compared to yesterday. No complaints of worsening shortness of breath. No nausea vomiting or abdominal pain or diarrhea. No cough or production. No fever no chills. Cardiology is following. Anticipate discharge once her chest pain improves. No further intervention recommended at this time. 2D echocardiogram showed overall left ventricular systolic function is normal. Right ventricular systolic pressure is normal. No significant valvular abnormalities. Current medications reviewed. Objective - Vital Signs Vital signs: Vital Signs Temp 98.7 F 11/28/19 16:00 Pulse 86 11/28/19 16:00 Resp 17 11/28/19 16:00 BP 129/81 11/28/19 16:00 Pulse Ox 93 L 11/28/19 16:00 Intake & Output 11/27/19 11/28/19 11/28/19 18:59 06:59 18:59 Intake Total 342 Balance 342 Weight 98.883 kg 102.5 kg Intake: Oral 342 Other: Voiding Method Toilet # Voids 1 - Exam PHYSICAL EXAMINATION: Patient is lying in the bed comfortably, no acute distress, awake alert and oriented.. HEENT: Normocephalic. Neck is supple. Pupils reactive. Nostrils clear. Oral cavity is moist. Ears reveal no drainage. Neck reveals no JVD, carotid bruits, or thyromegaly. CHEST EXAMINATION: Trachea is central. Symmetrical expansion. Lung stoner clear to auscultation and percussion. CARDIAC: Normal S1, S2 with no gallops. No murmurs ABDOMEN: Soft. Bowel sounds normal. No organomegaly. No abdominal bruits. Extremities: reveal no edema. No clubbing or cyanosis Neurologically awake, alert, oriented x3 with well-coordinated movements. No focal deficits noted Skin: No rash or skin lesions. Psychiatric: Coperative. Nonsuicidal Musculoskeletal: No joint swelling or deformity. Normal range of motion. - Labs CBC & Chem 7: 11/29/19 16:48 11/29/19 16:48 Labs: Abnormal Lab Results - Last 24 Hours (Table) 11/27/19 Range/Units 09:30 Triglycerides 156 H (<150) mg/dL LDL Cholesterol, Calc 106 H (0-99) mg/dL Microbiology - Last 24 Hours (Table) 11/27/19 10:23 Genital Culture - Preliminary Cervix Assessment and Plan Assessment: Atypical chest pain. Ruled out ACS. Elevated d-dimer without evidence of pulmonary embolism in the CTA Recent COVID-19 viral infection in September 2019 Morbid obesity with a BMI 37.4 History of asthma Anxiety, PTSD DVT prophylaxis with heparin subcu Plan: Patient will be continued pain management with morphine. Gentle IV hydration and telemetry monitoring. Troponin x3-. CTA negative for pulmonary embolism. TSH and CRP levels WNL. Continue with GI prophylaxis with PPI and DVT prophylaxis. Cardiology was consulted. Further recommendations based on the clinical course. Time with Patient: Greater than 30
--- NOTE | 2019-11-30 01:46 | P.PN ---
Subjective Progress Note Date: 11/29/19 Principal diagnosis: chest Pain Patient is a 34-year-old male with a known history of asthma, osteoarthritis, anxiety, PTSD and recent history of COVID-19 infection in September presented to ER with complaints of chest pain. Chest pain is mainly mid left retrosternal and radiating to the back. No complaints of right or left arm radiation up to the jaw. Associated with nausea and dizziness. No diaphoresis. Patient was given nitroglycerin which she states that causing her headache. No orthopnea or PND. Patient is mainly squeezing like sensation in the chest. Denies any sharp pain with deep breathing. Sometimes pain gets worse with movement.Denied any cough or sputum production. No fever no chills. No nausea vomiting or abdominal pain or diarrhea. D-dimer was found to be 1.28 on admission.. Patient did have d-dimer elevation during COVID-[address] angiogram showed no evidence of pulmonary embolism. No airspace disease. Denied any reproducible chest pain. Chest x-ray showed no acute cardiopulmonary process EKG showed sinus tachycardia. Patient states that she has been stressful recently and started back working after 2 months. worked last night. Troponin x3 is negative. Other laboratory data reviewed. UA negative. No leukocytosis. 11/28/2019 Patient is currently complaining of chest pain but improved compared to yes terday. No complaints of worsening shortness of breath. No nausea vomiting or abdominal pain or diarrhea. No cough or production. No fever no chills. Cardiology is following. Anticipate discharge once her chest pain improves. No further intervention recommended at this time. 2D echocardiogram showed overall left ventricular systolic function is normal. Right ventricular systolic pressure is normal. No significant valvular abnormalities. 11/29/2019 Patient states that her chest pain is little better today. No complaints of shortness of breath. Cardiology is planning for stress test tomorrow. Otherwise TSH and CRP levels within normal limits. No cough or production. No fever no chills. No nausea vomiting or abdominal pain or diarrhea. No other acute overnight issues. Currently being continued on morphine for pain management. Current medications reviewed. Objective - Vital Signs Vital signs: Vital Signs Temp 98.3 F 11/29/19 19:40 Pulse 71 11/29/19 19:40 Resp 16 11/29/19 19:40 BP 124/89 11/29/19 19:40 Pulse Ox 98 11/29/19 19:40 Intake & Output 11/29/19 11/29/19 11/30/19 06:59 18:59 06:59 Intake Total 360 Output Total 180 Balance 360 -180 Weight 102 kg Intake: Oral 360 Output: Urine 180 Other: Voiding Method Toilet Toilet Toilet # Voids 2 1 - Exam PHYSICAL EXAMINATION: Patient is lying in the bed comfortably, no acute distress, awake alert and oriented.. HEENT: Normocephalic. Neck is supple. Pupils reactive. Nostrils clear. Oral cavity is moist. Ears reveal no drainage. Neck reveals no JVD, carotid bruits, or thyromegaly. CHEST EXAMINATION: Trachea is central. Symmetrical expansion. Lung stoner clear to auscultation and percussion. CARDIAC: Normal S1, S2 with no gallops. No murmurs ABDOMEN: Soft. Bowel sounds normal. No organomegaly. No abdominal bruits. Extremities: reveal no edema. No clubbing or cyanosis Neurologically awake, alert, oriented x3 with well-coordinated movements. No focal deficits noted Skin: No rash or skin lesions. Psychiatric: Coperative. Nonsuicidal Musculoskeletal: No joint swelling or deformity. Normal range of motion. - Labs CBC & Chem 7: 11/29/19 16:48 11/29/19 16:48 Labs: Abnormal Lab Results - Last 24 Hours (Table) 11/29/19 Range/Units 16:48 Glucose 112 H (74-99) mg/dL Assessment and Plan Assessment: Atypical chest pain. Ruled out ACS. Elevated d-dimer without evidence of pulmonary embolism in the CTA Recent COVID-19 viral infection in September 2019 Morbid obesity with a BMI 37.4 History of asthma Anxiety, PTSD DVT prophylaxis with heparin subcu Plan: Patient will be continued pain management with morphine. Gentle IV hydration and telemetry monitoring. Troponin x3-. CTA negative for pulmonary embolism. TSH and CRP levels WNL. Continue with GI prophylaxis with PPI and DVT prophyla xis. Cardiology was consulted. Further recommendations based on the clinical course.
[2019-11-30] MEDS: SODIUM CHLORIDE 0.9% 1,000 ML IV SCH ×2 (03:54→12:53)
[2019-11-30] MEDS: PANTOPRAZOLE 40 MG TABLET PO SCH (06:14)
[2019-11-30 07:02] LABS: Basophils # (A) 0.1 k/uL (0-0.2); Basophils % (A) 1 %; Eosinophils # (A) 0.2 k/uL (0-0.7); Eosinophils % (A) 3 %; HCT 45.7 % (34.0-46.0); HGB 14.6 gm/dL (11.4-16.0); Lymphocytes # (A) 1.5 k/uL (1.0-4.8); Lymphocytes % (A) 20 %; MCH 28.8 pg (25.0-35.0); MCHC 31.9 g/dL (31.0-37.0); MCV 90.5 fL (80.0-100.0); Mean Platelet Volume 8.5; Monocytes # (A) 0.4 k/uL (0-1.0); Monocytes % (A) 5 %; Neutrophils # (A) 5.3 k/uL (1.3-7.7); Neutrophils % (A) 71 %; Platelet Count 221 k/uL (150-450); RBC 5.05 m/uL (3.80-5.40); RDW 13.9 % (11.5-15.5); WBC 7.5 k/uL (3.8-10.6)
[2019-11-30 07:15] LABS: African American GFR (CKD) >90 (>60 ml/min/1.73 sqM); Anion Gap 7 mmol/L; Blood Urea Nitrogen 10 mg/dL (7-17); Calcium 9.4 mg/dL (8.4-10.2); Carbon Dioxide 23 mmol/L (22-30); Chloride 107 mmol/L (98-107); Glucose 83 mg/dL (74-99); Non-African American GFR(CKD) >90 (>60 ml/min/1.73 sqM); Sodium 137 mmol/L (137-145)
[2019-11-30 07:16] LABS: Potassium 5.1 mmol/L (3.5-5.1)
[2019-11-30] MEDS: SYMBICORT 160-4.5 MCG INHALER INHALATION SCH (07:39)
[2019-11-30] MEDS: ENOXAPARIN 40 MG/0.4 ML SYRINGE SQ SCH (07:57)
[2019-11-30] MEDS: ETHINYL ESTRADIOL PO SCH (07:58)
[2019-11-30] MEDS: LEVONORGESTREL PO SCH (07:58)
[2019-11-30] MEDS: ASPIRIN 81 MG PO SCH (08:34)
[2019-11-30] MEDS: CITALOPRAM HYDROBROMIDE 10 MG TAB PO SCH (08:34)
[2019-11-30 12:24] LABS: C. trachomatis,PCR Negative (Neg,Equiv); Chlamydia trachomatis Source Cervix; N. gonorrhoeae,PCR Negative (Neg,Equiv); Neisseria Source Cervix
[2019-11-30] MEDS: traZODone HCL 100 MG TAB PO SCH (12:53)
[2019-11-30 12:56] VITALS: BP 143/82; PULSE 87; RESP 17; TEMP 98.5
--- NOTE | 2019-11-30 13:01 | EST ---
EXERCISE STRESS DATE OF SERVICE: 11/30/2019 AGE: 34 SEX: F HT: 5'4" WT: 225 lbs PROTOCOL: Stress Echo STAGE: 2 DURATION OF EXERCISE: 6:15 HEART RATE REST: 73 BLOOD PRESSURE REST: 110/75 MAXIMUM HEART RATE ACHIEVED: 167 MAXIMUM BLOOD PRESSURE: 158/69 85% MPHR: 158 100% MPHR: 186 METS: 7.3 INDICATIONS: Chest pain. STRESS DATA: Heart rate is 73, pressure is 110/75 mmHg. Baseline EKG showed sinus mechanism. The patient exercised on the treadmill according to Keanu protocol for a total of 6 minutes and achieved 7.3 METS with max heart rate was 167, which is about 96% of maximum predicted heart rate. Maximum blood pressure was 158/69 mmHg. Clinically the patient developed chest discomfort in response to exercise. The EKG did not show any significant ST or T-wave abnormalities concerning for ischemia. ECHOCARDIOGRAM IMAGES: On echocardiogram images from parasternal long axis view, parasternal short axis view, apical 4 chamber and apical 2 chamber view, were obtained as the baseline images, at the peak of the heart rate as well as on recovery. The echocardiogram images overall showed good augmentation in the left ventricular systolic function. Please note that the echocardiogram images are very poor quality. CONCLUSION: 1. Average exercise tolerance. 2. Normal EKG in response to exercise. 3. The echocardiogram images are of poor quality. 4. No obvious wall motion abnormalities seen. MMODL / IJN: [id number] /
--- NOTE | 2019-11-30 13:37 | P.PN ---
Subjective Progress Note Date: 11/30/19 This is a 34-year-old female with history of asthma, osteoarthritis, anxiety, PTSD, recent history of cold and 19 in September, presented to the hospital with midsternal chest discomfort. Underwent a stress echocardiographic study today that was negative for any reversible ischemia. Blood pressure 142/80 with a heart rate in the 80s, 95% on room air. White blood cell count 7.5, hemoglobin 14.6, platelet count 221. Sodium 137, potassium 5.1, BUN 10, creatinine 0.7. Echocardiogram with Doppler study revealed a normal left ventricular systolic function. Objective - Vital Signs Vital signs: Vital Signs Temp 98.5 F 11/30/19 12:00 Pulse 87 11/30/19 12:00 Resp 17 11/30/19 12:00 BP 143/82 11/30/19 12:00 Pulse Ox 95 11/30/19 12:00 Intake & Output 11/29/19 11/30/19 11/30/19 18:59 06:59 18:59 Intake Total 360 Output Total 180 Balance 360 -180 Weight 102 kg Intake: Oral 360 Output: Urine 180 Other: Voiding Method Toilet Toilet Toilet # Voids 2 1 2 - Exam Gen: This is a a 34-year-old obese female. She is resting bed appears to be comfortable and in no acute distress. VS: Afebrile, heart rate 86, blood pressure 140/82, pulse ox (4% on room air. HEENT: Head is atraumatic, normocephalic. Pupils equal, round. Sclerae is anicteric. NECK: Supple. No JVD. No lymphadenopathy. No thyromegaly. LUNGS: Clear to auscultation. No wheezes or rhonchi. No intercostal retractions. HEART: Regular rate and rhythm. No murmur. ABDOMEN: Soft. Bowel sounds are present. No masses. No tenderness. EXTREMITIES: No pedal edema. No calf tenderness. Dorsalis pedis +2 bilaterally. NEUROLOGICAL: Patient is awake, alert and oriented x3. Cranial nerves 2 through 12 are grossly intact. - Labs CBC & Chem 7: 11/30/19 06:26 11/30/19 06:26 Labs: Abnormal Lab Results - Last 24 Hours (Table) 11/29/19 Range/Units 16:48 Glucose 112 H (74-99) mg/dL Assessment and Plan Plan: Assessment and plan: #1 atypical Chest pain with negative troponins. Acute coronary syndrome ruled out #2History of mild intermittent asthma, stable #3Generalized anxiety disorder and PTSD #4History of Covid 19 infection in September. Repeat Covid 19 testing negative Plan Stress echocardiographic study performed today was negative for any reversible ischemia, from cardiology's perspective the patient may be able to be discharged home today. Follow-up appointment in the office post discharge. DNP note has been reviewed, I agree with a documented findings and plan of care. Patient was seen and examined.
--- NOTE | 2019-11-30 23:42 | P.DS ---
Providers Date of admission: 11/29/19 15:34 Attending physician: Dorina Ryan Consults: 11/27/19 16:46 Consult Physician Routine Consulting Provider: Giuseppe Falcon Consult Reason/Comments: chest pain Do you want consulting provider notified?: Yes, Notify in am Primary care physician: Cora Cowart Hospital Course: Diagnoses: Atypical chest pain. Cardiac and pulmonary causes are ruled out. Cardiology was on the case and cleared patient for discharge Elevated d-dimer without evidence of pulmonary embolism in the CTA Recent COVID-19 viral infection in September 2019 Morbid obesity with a BMI 37.4 History of asthma Anxiety, PTSD Hospital course: Patient is a 34-year-old male with a known history of asthma, osteoarthritis, anxiety, PTSD and recent history of COVID-19 infection in September presented to ER with complaints of chest pain. Patient has been evaluated by time checker and workup was unrevealing as a cardiac source and patient was cleared for discharge by time checker. Also she has elevated d-dimer but there is no evidence of pulmonary embolus him on CTA. Patient chest pain most likely is musculoskeletal versus from stress, with less likely GI source. No other complaint, no dyspnea, no fever, no coughing, no palpitation or dizziness. Patient was cleared for discharge by cardiology service Also patient was tested for chlamydia and gonorrhea which were unremarkable, she got tested because her boyfriend cheated on her and she told me. I told the patient that gentle culture is still pending and she can follow up with her family doctor and she agrees. Problems and management plan were discussed with the patient and he verbalized understanding and acceptance Patient was found stable and can be discharged home however he needs follow-up as an outpatient. Patient was instructed to follow up with PCP within one week and patient agrees Gen: patient is a AAOx3, no distress CVS: S1-S2, RRR, no murmur Lungs: B/L CTA, no wheezing Abdomen: soft, no distention, no tenderness, positive bowel sounds Extremity: no leg edema or induration Time spent more than 35 minutes Patient Condition at Discharge: Stable Plan - Discharge Summary Discharge Rx Participant: No New Discharge Prescriptions: Continue traZODone HCL [Desyrel] 100 mg PO DAILY Citalopram Hydrobromide [Citalopram HBr] 30 mg PO DAILY Acetaminophen Tab [Tylenol] 650 mg PO Q6H PRN PRN Reason: Pain Or Fever > 100.5 Introvale 0.15-0.3mg 1 tab PO DAILY Budesonide-Formot 160-4.5 Mcg [Symbicort 160-4.5 Mcg Inhaler] 2 puff INHALATION RT-BID #1 puff Albuterol Inhaler [Ventolin Hfa Inhaler] 2 puff INHALATION RT-QID PRN PRN Reason: Shortness Of Breath Discharge Medication List traZODone HCL [Desyrel] 100 mg PO DAILY 05/20/15 [History] Acetaminophen Tab [Tylenol] 650 mg PO Q6H PRN 09/15/19 [History] Citalopram Hydrobromide [Citalopram HBr] 30 mg PO DAILY 09/15/19 [History] Introvale 0.15-0.3mg 1 tab PO DAILY 09/15/19 [History] Budesonide-Formot 160-4.5 Mcg [Symbicort 160-4.5 Mcg Inhaler] 2 puff INHALATION RT-BID #1 puff 09/18/19 [Rx] Albuterol Inhaler [Ventolin Hfa Inhaler] 2 puff INHALATION RT-QID PRN 11/27/19 [History] Follow up Appointment(s)/Referral(s): Tyler Raya MD [STAFF PHYSICIAN] - 2 Weeks Cora Cowart MD [Primary Care Provider] - 1-2 days Patient Instructions/Handouts: Chest Pain (DC), Pleurisy (DC) Activity/Diet/Wound Care/Special Instructions: Heart healthy diet Activity is limited till you see your doctor Discharge/Stand Alone Forms: Work/Release Restrictions Form Discharge Disposition: HOME SELF-CARE
== END 2019-11-30 14:22 | disposition home or self-care (01) | DRG 313 ==
LOC: EC 08:55 → 1SOBS 10:22 → 3SCARD 10:32 → OBSVTOIN 11-29 15:34
PROVIDERS: ADMIT Hospitalist; ATTEND Hospitalist
DX: R07.89 Other chest pain (principal); E66.01 Morbid (severe) obesity due to excess calories; F41.1 Generalized anxiety disorder; F43.10 Post-traumatic stress disorder, unspecified; J45.20 Mild intermittent asthma, uncomplicated; M19.90 Unspecified osteoarthritis, unspecified site; R51 Headache; R79.89 Other specified abnormal findings of blood chemistry; Z11.59 Encounter for screening for other viral diseases; Z20.2 Contact with and (suspected) exposure to infections with a predominantly sexual mode of transmission; Z68.37 Body mass index [BMI] 37.0-37.9, adult; Z79.51 Long term (current) use of inhaled steroids; Z79.899 Other long term (current) drug therapy; Z88.5 Allergy status to narcotic agent; Z82.49 Family history of ischemic heart disease and other diseases of the circulatory system
CPT/HCPCS: 36415; 71046; 71275; 80048; 80053; 80061; 81003; 81025; 83735; 84443; 84484; 85025; 85379; 85610; 85652; 85730; 86140; 87070; 87491; 87591; 87808; 93005; 93306; 93351; 94640; 96374; 96375; 99285

== ENCOUNTER 2022-09-08 08:27 | Observation (INO) | payer BC ==
[2022-09-08] MEDS ORDERED: KETOROLAC 15 MG/ML 1 ML VIAL IVP STA (08:58)
[2022-09-08] MEDS ORDERED: SODIUM CHLORIDE 0.9% 2,000 ML IV STA (08:58)
[2022-09-08] MEDS ORDERED: ONDANSETRON 4 MG/2 ML VIAL IVP STA (08:58)
[2022-09-08] MEDS ORDERED: HYDROmorphone 0.5 MG/0.5 ML SYRINGE IVP STA ×3 (08:59→18:20)
--- NOTE | 2022-09-08 09:27 | ED ---
Abdominal Pain HPI - General Chief Complaint: Abdominal Pain Stated Complaint: Abd Pain Time Seen by Provider: 09/08/22 08:45 Source: patient, old records reviewed Mode of arrival: ambulatory Limitations: no limitations - History of Present Illness Initial Comments: This a 37-year-old female presents emergency Department chief complaint of left- sided abdominal pain. Patient states she is a sudden onset radiates to the side. Patient states she does not have a history kidney stones. She states nothing makes the pain feel better or worse she states she's had persistent nausea and vomiting started. Denies any fever or chills no chest pain or shortn ess of breath. She has meant that she's had an ovarian cysts in the past but this does not feel similar. She has no dysuria no change in bowel habits. - Related Data Home Medications Medication Instructions Recorded Confirmed Citalopram Hydrobromide 30 mg PO DAILY 09/15/19 09/08/22 [Citalopram HBr] Albuterol Inhaler [Ventolin Hfa 2 puff INHALATION RT-QID PRN 11/27/19 09/08/22 Inhaler] Cyclobenzaprine [Flexeril] 10 mg PO TID PRN 09/08/22 09/08/22 buPROPion XL [Wellbutrin XL] 150 mg PO DAILY 09/08/22 09/08/22 hydrOXYzine HCL [Atarax] 50 mg PO HS 09/08/22 09/08/22 Allergies Allergy/AdvReac Type Severity Reaction Status Date / Time hydrocodone bitartrate AdvReac Nausea & Verified 09/08/22 13:37 [From Vicodin] Vomiting Review of Systems ROS Statement: Those systems with pertinent positive or pertinent negative responses have been documented in the HPI. ROS Other: All systems not noted in ROS Statement are negative. Past Medical History Past Medical History: Asthma, Osteoarthritis (OA) Additional Past Medical History / Comment(s): ovarian cyst, endomytriosis History of Any Multi-Drug Resistant Organisms: None Reported Past Surgical History: Orthopedic Surgery Additional Past Surgical History / Comment(s): right eye surg., arthroscopic knee surg. Past Anesthesia/Blood Transfusion Reactions: No Reported Reaction Past Psychological History: Anxiety, PTSD Smoking Status: Never smoker Past Alcohol Use History: Rare Past Drug Use History: None Reported - Past Family History Father Family Medical History: AFIB Mother Family Medical History: No Reported History Additional Family Medical History / Comment(s): Mother is healthy General Exam Limitations: no limitations General appearance: alert, in no apparent distress Head exam: Present: atraumatic, normocephalic, normal inspection Eye exam: Present: normal appearance, PERRL, EOMI. Absent: scleral icterus, conjunctival injection, periorbital swelling ENT exam: Present: normal exam, normal oropharynx, mucous membranes moist Neck exam: Present: normal inspection. Absent: tenderness, meningismus, lymphadenopathy Respiratory exam: Present: normal lung sounds bilaterally. Absent: respiratory distress, wheezes, rales, rhonchi, stridor Cardiovascular Exam: Present: normal rhythm, tachycardia, normal heart sounds. Absent: systolic murmur, diastolic murmur, rubs, gallop, clicks GI/Abdominal exam: Present: soft, tenderness (Left), normal bowel sounds. Absent: distended, guarding, rebound, rigid Back exam: Absent: CVA tenderness (R), CVA tenderness (L) Neurological exam: Present: alert Skin exam: Present: warm, dry, intact, normal color. Absent: rash Course Vital Signs 09/08/22 09/08/22 09/08/22 08:44 08:58 09:00 Temperature 97.9 F 98.6 F Pulse Rate 138 H 27 L 110 H Respiratory 20 20 Rate Blood Pressure 140/93 138/102 O2 Sat by Pulse 96 95 96 Oximetry 09/08/22 09/08/22 09/08/22 09:16 10:00 10:06 Temperature Pulse Rate 101 H 109 H Respiratory 18 18 Rate Blood Pressure 133/88 139/96 O2 Sat by Pulse 98 97 96 Oximetry 09/08/22 09/08/22 11:00 12:59 Temperature Pulse Rate 103 H Respiratory 16 Rate Blood Pressure 136/91 137/95 O2 Sat by Pulse 95 97 Oximetry Medical Decision Making - Medical Decision Making Was pt. sent in by a medical professional or institution (, PA, STATION SUPERINTENDENT, urgent care, hospital, or correction...) When possible be specific @ -No Did you speak to anyone other than the patient for history (EMS, parent, family, police, friend...)? What history was obtained from this source @ -No Did you review nursing and triage notes (agree or disagree)? Why? @ -I reviewed and agree with nursing and triage notes Were old charts reviewed (outside hosp., previous admission, EMS record, old EKG, old radiological studies, urgent care reports/EKG's, correction records)? Report findings @ -No old charts were reviewed Differential Diagnosis (chest pain, altered mental status, abdominal pain women, abdominal pain men, vaginal bleeding, weakness, fever, dyspnea, syncope, headache, dizziness, GI bleed, back pain, seizure, CVA, palpatations, mental health, musculoskeletal)? @ -Differential Abdominal Pain : Appendicitis, cholecystitis, diverticulosis, ischemic bowel, pancreatitis, hepatitis, UTI, gastroenteritis, AAA, incarcerated hernia, bowel obstruction, constipation, inflammatory bowel, hepatitis, peptic ulcer disease, splenic infarction, perforated viscus, testicular torsion, this is not meant to be an all-inclusive list EKG interpreted by me (3pts min.). @ -As above X-rays interpreted by me (1pt min.). @ -None done CT interpreted by me (1pt min.). @ -CT shows large dilated appendix with appendicolith U/S interpreted by me (1pt. min.). @ -None done What testing was considered but not performed or refused? (CT, X-rays, U/S, labs)? Why? @ -None What meds were considered but not given or refused? Why? @ -None Did you discuss the management of the patient with other professionals (professionals i.e. , PA, STATION SUPERINTENDENT, lab, RT, psych nurse, hospice social worker, environmental professional, teacher, postal sorting officer, caseworker protective services)? Give summary @ -[Case discussed with Dr. Rudd who came and evaluated the patient patient was admitted and will go to the OR for acute appendicitis. Was smoking cessation discussed for >3mins.? @ -No Was critical care preformed (if so, how long)? @ -No Were there social determinants of health that impacted care today? How? (Homelessness, low income, unemployed, alcoholism, drug addiction, transportation, low edu. Level, literacy, decrease access to med. care, group home, rehab)? @ -No Was there de-escalation of care discussed even if they declined (Discuss DNR or withdrawal of care, Hospice)? DNR status @ -No What co-morbidities impacted this encounter? (DM, HTN, Smoking, COPD, CAD, Cancer, CVA, ARF, Chemo, Hep., AIDS, mental health diagnosis, sleep apnea, morbid obesity)? @ -None Was patient admitted / discharged? Hospital course, mention meds given and route, prescriptions, significant lab abnormalities, going to OR and other pertinent info. @ -Admitted acute appendicitis patient started on antibiotics, surgery evaluation and medicine consult. Undiagnosed new problem with uncertain prognosis? @ -No Drug Therapy requiring intensive monitoring for toxicity (Heparin, Nitro, Insulin, Cardizem)? @ -No Were any procedures done? @ -No Diagnosis/symptom? @ -Acute appendicitis Acute, or Chronic, or Acute on Chronic? @ -Acute Uncomplicated (without systemic symptoms) or Complicated (systemic symptoms)? @ -Uncomplicated Side effects of treatment? @ -No Exacerbation, Progression, or Severe Exacerbation? @ -No Poses a threat to life or bodily function? How? (Chest pain, [place], [place], pneumonia, PE, COPD, DKA, ARF, appy, cholecystitis, CVA, Diverticulitis, Homicidal, Suicidal, threat to staff... and all critical care pts) @ -No - Lab Data Result diagrams: 09/08/22 09:14 09/08/22 09:14 Lab Results 09/08/22 09/08/22 09/08/22 Range/Units 09:14 09:14 09:14 WBC 16.1 H (3.8-10.6) k/uL RBC 5.06 (3.80-5.40) m/uL Hgb 15.2 (11.4-16.0) gm/dL Hct 43.8 (34.0-46.0) % MCV 86.4 (80.0-100.0) fL MCH 29.9 (25.0-35.0) pg MCHC 34.6 (31.0-37.0) g/dL RDW 13.4 (11.5-15.5) % Plt Count 186 (150-450) k/uL MPV 7.9 Neutrophils % 93 % Lymphocytes % 4 % Monocytes % 3 % Eosinophils % 0 % Basophils % 0 % Neutrophils # 14.9 H (1.3-7.7) k/uL Lymphocytes # 0.6 L (1.0-4.8) k/uL Monocytes # 0.4 (0-1.0) k/uL Eosinophils # 0.0 (0-0.7) k/uL Basophils # 0.0 (0-0.2) k/uL Sodium 137 (137-145) mmol/L Potassium 4.1 (3.5-5.1) mmol/L Chloride 105 (98-107) mmol/L Carbon Dioxide 20 L (22-30) mmol/L Anion Gap 12 mmol/L BUN 11 (7-17) mg/dL Creatinine 0.76 (0.52-1.04) mg/dL Est GFR (CKD-EPI)AfAm >90 (>60 ml/min/1.73 sqM) Est GFR (CKD-EPI)NonAf >90 (>60 ml/min/1.73 sqM) Glucose 157 H (74-99) mg/dL Plasma Lactic Acid Yohannes (0.7-2.0) mmol/L Calcium 9.1 (8.4-10.2) mg/dL Total Bilirubin 0.6 (0.2-1.3) mg/dL AST 28 (14-36) U/L ALT 40 H (4-34) U/L Alkaline Phosphatase 116 (38-126) U/L Total Protein 7.1 (6.3-8.2) g/dL Albumin 4.2 (3.5-5.0) g/dL Amylase 54 (30-110) U/L Lipase 40 (23-300) U/L HCG, Quant mIU/mL Urine Color Yellow Urine Appearance Cloudy H (Clear) Urine pH 6.0 (5.0-8.0) Ur Specific [place] 1.022 (1.001-1.035) Urine Protein Negative (Negative) Urine Glucose (UA) Negative (Negative) Urine Ketones Trace H (Negative) Urine Blood Negative (Negative) Urine Nitrite Negative (Negative) Urine Bilirubin Negative (Negative) Urine Urobilinogen <2.0 (<2.0) mg/dL Ur Leukocyte Esterase Negative (Negative) Urine RBC 1 (0-5) /hpf Urine WBC 3 (0-5) /hpf Ur Squamous Epith Cells 4 (0-4) /hpf Urine Bacteria Rare H (None) /hpf Urine Mucus Many H (None) /hpf 09/08/22 09/08/22 Range/Units 09:14 09:14 WBC (3.8-10.6) k/uL RBC (3.80-5.40) m/uL Hgb (11.4-16.0) gm/dL Hct (34.0-46.0) % MCV (80.0-100.0) fL MCH (25.0-35.0) pg MCHC (31.0-37.0) g/dL RDW (11.5-15.5) % Plt Count (150-450) k/uL MPV Neutrophils % % Lymphocytes % % Monocytes % % Eosinophils % % Basophils % % Neutrophils # (1.3-7.7) k/uL Lymphocytes # (1.0-4.8) k/uL Monocytes # (0-1.0) k/uL Eosinophils # (0-0.7) k/uL Basophils # (0-0.2) k/uL Sodium (137-145) mmol/L Potassium (3.5-5.1) mmol/L Chloride (98-107) mmol/L Carbon Dioxide (22-30) mmol/L Anion Gap mmol/L BUN (7-17) mg/dL Creatinine (0.52-1.04) mg/dL Est GFR (CKD-EPI)AfAm (>60 ml/min/1.73 sqM) Est GFR (CKD-EPI)NonAf (>60 ml/min/1.73 sqM) Glucose (74-99) mg/dL Plasma Lactic Acid Yohannes 1.6 (0.7-2.0) mmol/L Calcium (8.4-10.2) mg/dL Total Bilirubin (0.2-1.3) mg/dL AST (14-36) U/L ALT (4-34) U/L Alkaline Phosphatase (38-126) U/L Total Protein (6.3-8.2) g/dL Albumin (3.5-5.0) g/dL Amylase (30-110) U/L Lipase (23-300) U/L HCG, Quant <2.4 mIU/mL Urine Color Urine Appearance (Clear) Urine pH (5.0-8.0) Ur Specific [place] (1.001-1.035) Urine Protein (Negative) Urine Glucose (UA) (Negative) Urine Ketones (Negative) Urine Blood (Negative) Urine Nitrite (Negative) Urine Bilirubin (Negative) Urine Urobilinogen (<2.0) mg/dL Ur Leukocyte Esterase (Negative) Urine RBC (0-5) /hpf Urine WBC (0-5) /hpf Ur Squamous Epith Cells (0-4) /hpf Urine Bacteria (None) /hpf Urine Mucus (None) /hpf - EKG Data -: EKG Interpreted by Me EKG Comments: EKG performed at 13:08 sinus rhythm with rate of 95. 187/88 QT/QTC 362/414 Disposition Clinical Impression: Abdominal pain, Appendicitis Disposition: ADMITTED IP TO THIS HOSP Condition: Fair Time of Disposition: 12:34
[2022-09-08 09:34] LABS: Basophils % (A) 0 %; Eosinophils % (A) 0 %; HCT 43.8 % (34.0-46.0); HGB 15.2 gm/dL (11.4-16.0); Lymphocytes # (A) 0.6 k/uL (1.0-4.8); Lymphocytes % (A) 4 %; MCH 29.9 pg (25.0-35.0); MCHC 34.6 g/dL (31.0-37.0); MCV 86.4 fL (80.0-100.0); Mean Platelet Volume 7.9; Monocytes # (A) 0.4 k/uL (0-1.0); Monocytes % (A) 3 %; Neutrophils # (A) 14.9 k/uL (1.3-7.7); Neutrophils % (A) 93 %; Platelet Count 186 k/uL (150-450); RBC 5.06 m/uL (3.80-5.40); RDW 13.4 % (11.5-15.5); WBC 16.1 k/uL (3.8-10.6)
[2022-09-08 09:41] LABS: ALT 40 U/L (4-34); AST 28 U/L (14-36); African American GFR (CKD) >90 (>60 ml/min/1.73 sqM); Albumin 4.2 g/dL (3.5-5.0); Alkaline Phosphatase 116 U/L (38-126); Amylase 54 U/L (30-110); Anion Gap 12 mmol/L; Blood Urea Nitrogen 11 mg/dL (7-17); Calcium 9.1 mg/dL (8.4-10.2); Carbon Dioxide 20 mmol/L (22-30); Chloride 105 mmol/L (98-107); Glucose 157 mg/dL (74-99); Lipase 40 U/L (23-300); Non-African American GFR(CKD) >90 (>60 ml/min/1.73 sqM); Potassium 4.1 mmol/L (3.5-5.1); Sodium 137 mmol/L (137-145); Total Bilirubin 0.6 mg/dL (0.2-1.3); Total Protein 7.1 g/dL (6.3-8.2)
--- NOTE | 2022-09-08 09:51 | CT ---
EXAMINATION TYPE: CT abdomen pelvis wo con DATE OF EXAM: 09/08/2022 HISTORY: Left sided abdominal pain CT DLP: 1162 mGycm. Automated Exposure Control for Dose Reduction was Utilized. TECHNIQUE: CT scan of the abdomen and pelvis is performed without oral or IV contrast. COMPARISON: NONE FINDINGS: Within the limitations of a non-contrast study, the following observations are made. LUNG BASES: No significant abnormality is appreciated. LIVER/GB: No significant abnormality is appreciated. PANCREAS: No significant abnormality is seen. SPLEEN: No significant abnormality is seen. ADRENALS: No significant abnormality is seen. KIDNEYS: No renal calculi or hydronephrosis seen bilaterally. BOWEL: Appendicolith at the base of the appendix. Appendix is dilated up to 14 mm without significant fluid or fat stranding but prominent mucosa and/or wall thickening. No free air. No suspicious small or large bowel dilatation. GENITAL ORGANS: No gross abnormality seen. LYMPH NODES: No greater than 1cm abdominal or pelvic lymph nodes are appreciated. OSSEOUS STRUCTURES: No significant abnormality is seen. OTHER: No significant additional abnormality is seen. IMPRESSION: Significantly enlarged appendix with appendicolith at the base and prominent mucosa and/o r wall thickening worrisome for acute appendicitis despite lack of surrounding fat stranding. Case discussed with the ER physician assistant fitness manager via telephone at the time of dictation.
[2022-09-08 12:11] LABS: Appearance,Urine Cloudy (Clear); Bacteria,Urine Rare /hpf; Bilirubin,Urine Negative (Negative); Blood,Urine Negative (Negative); Color,Urine Yellow; Glucose,Urine (UA) Negative (Negative); Ketones,Urine Trace (Negative); Leukocyte Esterase,Urine Negative (Negative); Mucus,Urine Many /hpf; Nitrite,Urine Negative (Negative); Protein,Urine Negative (Negative); RBC,Urine 1 /hpf (0-5); Specific Gravity,Urine 1.022 (1.001-1.035); Squamous Epithelial Cell,Urine 4 /hpf (0-4); Urobilinogen,Urine <2.0 mg/dL (<2.0); WBC,Urine 3 /hpf (0-5)
[2022-09-08] MEDS ORDERED: NALOXONE 0.4 MG/ML 1 ML VIAL IV PRN (12:34)
[2022-09-08] MEDS ORDERED: HYDROmorphone 0.5 MG/0.5 ML SYRINGE IVP PRN (12:34)
[2022-09-08] MEDS ORDERED: ONDANSETRON 4 MG/2 ML VIAL IVP PRN (12:34)
[2022-09-08] MEDS ORDERED: ACETAMINOPHEN TAB 325 MG TAB PO PRN (12:34)
[2022-09-08] MEDS: PANTOPRAZOLE 40 MG/10 ML VIAL IV SCH (12:41)
[2022-09-08] MEDS ORDERED: KETOROLAC 15 MG/ML 1 ML VIAL ONE (13:50)
[2022-09-08] MEDS ORDERED: ONDANSETRON 4 MG/2 ML VIAL ONE (13:50)
[2022-09-08] MEDS ORDERED: ROCURONIUM 10 MG/ML (5 ML VIAL) IV ONE (13:50)
[2022-09-08] MEDS ORDERED: DEXAMETHASONE SOD PHOSPHATE 4 MG/ML 1 ML VIAL ONE (13:50)
[2022-09-08] MEDS ORDERED: HYDROmorphone (PF) 1 MG/ML ONE (13:50)
[2022-09-08] MEDS ORDERED: NEOSTIGMINE 1 MG/ML 10 ML VIAL ONE (13:50)
[2022-09-08] MEDS ORDERED: SUCCINYLCHOLINE CHLORIDE 200 MG/10 ML VIAL IV ONE (13:50)
[2022-09-08] MEDS ORDERED: PROPOFOL 10 MG/ML 20 ML VIAL IV ONE (13:50)
[2022-09-08] MEDS ORDERED: fentaNYL (PF) 50 MCG/ML 2 ML AMP ONE (13:50)
[2022-09-08] MEDS ORDERED: GLYCOPYRROLATE 0.2 MG/ML 2 ML VIAL ONE (13:50)
[2022-09-08] MEDS ORDERED: MIDAZOLAM 2 MG/2 ML VIAL ONE (13:50)
[2022-09-08] MEDS ORDERED: BUPIVACAIN-EPI 0.25%-1:200,000 30 ML VIAL SQ ONE (13:53)
[2022-09-08] MEDS ORDERED: LACTATED RINGERS 1,000 ML IV ONE ×2 (13:53→14:52)
--- NOTE | 2022-09-08 13:54 | P.GSHP ---
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 HR at the time was 140s. Pain is still present; over lower abdomen & umbilicus. Normal BM. Last ate around 4am. Has history of ovarian cyst & endometriosis, but this episode of pain is different. - Constitutional Constitutional: Reports anorexia, Reports poor appetite - Cardiovascular Cardiovascular: Reports rapid heart beat, Denies high blood pressure - Respiratory Comment: has asthma, on inhalers - Gastrointestinal Gastrointestinal: Reports abdominal pain, Reports bloating, Reports heartburn, Reports nausea - Genitourinary (Female) Comment: history of endometriosis, ovarian cyst - Psychiatric Comment: history of PTSD - Endocrine Comment: no thyroid disorder Endocrine: Denies high blood sugars Past Medical History Past Medical History: Asthma, Osteoarthritis (OA) Additional Past Medical History / Comment(s): ovarian cyst, endomytriosis History of Any Multi-Drug Resistant Organisms: None Reported Past Surgical History: Orthopedic Surgery Additional Past Surgical History / Comment(s): right eye surg., arthroscopic knee surg, open ovarian cystectomy Past Anesthesia/Blood Transfusion Reactions: No Reported Reaction Past Psychological History: Anxiety, PTSD Smoking Status: Never smoker Past Alcohol Use History: Rare Past Drug Use History: None Reported - Past Family History Father Family Medical History: AFIB Mother Family Medical History: No Reported History Additional Family Medical History / Comment(s): Mother is healthy Medications and Allergies Home Medications Medication Instructions Recorded Confirmed Type Citalopram Hydrobromide 30 mg PO DAILY 09/15/19 09/08/22 History [Citalopram HBr] Albuterol Inhaler [Ventolin Hfa 2 puff INHALATION RT-QID PRN 11/27/19 09/08/22 History Inhaler] Cyclobenzaprine [Flexeril] 10 mg PO TID PRN 09/08/22 09/08/22 History buPROPion XL [Wellbutrin XL] 150 mg PO DAILY 09/08/22 09/08/22 History hydrOXYzine HCL [Atarax] 50 mg PO HS 09/08/22 09/08/22 History Allergies Allergy/AdvReac Type Severity Reaction Status Date / Time hydrocodone bitartrate AdvReac Nausea & Verified 09/08/22 13:37 [From Vicodin] Vomiting Surgical - Exam Vital Signs Temp Pulse Resp BP Pulse Ox 97.9 F 138 H 20 140/93 96 09/08/22 08:44 09/08/22 08:44 09/08/22 08:44 09/08/22 08:44 09/08/22 08:44 - General ill-appearing well developed, well nourished - Eyes no icteric - ENT no hearing loss - Neck supple - Respiratory normal respiratory effort, clear to auscultation - Cardiovascular slightly tachycardic in 110s-120s, down to 108 at end of exam Rhythm: regular Abnormal Heart Sounds: no systolic murmur, no diastolic murmur - Abdomen lower abdominal pain, R>L & suprapubic region; no gross peritonitis Abdomen: soft, tender, no guarding, no rigid - Integumentary dry, no diaphoresis - Neurologic no gross deficits - Psychiatric cooperative, appropriate affect Results - Labs 09/08/22 09:14 09/08/22 09:14 Abnormal Lab Results - Last 24 Hours (Table) 09/08/22 09/08/22 09/08/22 Range/Units 09:14 09:14 09:14 WBC 16.1 H (3.8-10.6) k/uL Neutrophils # 14.9 H (1.3-7.7) k/uL Lymphocytes # 0.6 L (1.0-4.8) k/uL Carbon Dioxide 20 L (22-30) mmol/L Glucose 157 H (74-99) mg/dL ALT 40 H (4-34) U/L Urine Appearance Cloudy H (Clear) Urine Ketones Trace H (Negative) Urine Bacteria Rare H (None) /hpf Urine Mucus Many H (None) /hpf Diabetes panel 09/08/22 Range/Units 09:14 Sodium 137 (137-145) mmol/L Potassium 4.1 (3.5-5.1) mmol/L Chloride 105 (98-107) mmol/L Carbon Dioxide 20 L (22-30) mmol/L BUN 11 (7-17) mg/dL Creatinine 0.76 (0.52-1.04) mg/dL Glucose 157 H (74-99) mg/dL Calcium 9.1 (8.4-10.2) mg/dL AST 28 (14-36) U/L ALT 40 H (4-34) U/L Alkaline Phosphatase 116 (38-126) U/L Total Protein 7.1 (6.3-8.2) g/dL Albumin 4.2 (3.5-5.0) g/dL Calcium panel 09/08/22 Range/Units 09:14 Calcium 9.1 (8.4-10.2) mg/dL Albumin 4.2 (3.5-5.0) g/dL Pituitary panel 09/08/22 Range/Units 09:14 Sodium 137 (137-145) mmol/L Potassium 4.1 (3.5-5.1) mmol/L Chloride 105 (98-107) mmol/L Carbon Dioxide 20 L (22-30) mmol/L BUN 11 (7-17) mg/dL Creatinine 0.76 (0.52-1.04) mg/dL Glucose 157 H (74-99) mg/dL Calcium 9.1 (8.4-10.2) mg/dL Adrenal panel 09/08/22 Range/Units 09:14 Sodium 137 (137-145) mmol/L Potassium 4.1 (3.5-5.1) mmol/L Chloride 105 (98-107) mmol/L Carbon Dioxide 20 L (22-30) mmol/L BUN 11 (7-17) mg/dL Creatinine 0.76 (0.52-1.04) mg/dL Glucose 157 H (74-99) mg/dL Calcium 9.1 (8.4-10.2) mg/dL Total Bilirubin 0.6 (0.2-1.3) mg/dL AST 28 (14-36) U/L ALT 40 H (4-34) U/L Alkaline Phosphatase 116 (38-126) U/L Total Protein 7.1 (6.3-8.2) g/dL Albumin 4.2 (3.5-5.0) g/dL - Imaging CT scan - abdomen: report reviewed, image reviewed Assessment and Plan Assessment: lower abdominal pain & nausea, suspect early acute appendicitis with appen dicolith - CT shows appendix tracking to pelvis - less likely BEHAVIORAL GENETICIST in nature due to CT findings, but could have component of endometriosis or ovarian cyst tachycardia leukocytosis Plan: Surgical & non surgical options discussed with mother & patient. Not textbook appendicitis picture but concern for early changes on CT, with tachycardia & leukocytosis, do not feel its unreasonable to proceed with laparoscopic appendectomy. Did discuss if other pathology causing pain & pain is still present after removal of appendix, will need to follow with PCP & BEHAVIORAL GENETICIST outpatient for further workup. Details of surgery along with risks, benefits discussed. Questions encouraged & answered. Will proceed with laparoscopic possibly open appendectomy. Plan for admission post-operatively with anticipated discharge in next 24-48 hours. Needs to follow with PCP regarding tachycardia, especially if no resolution with surgery. EKG ordered pre-op. Time with Patient: Less than 30 (More than 30 minutes total care with chart review & documentation.)
[2022-09-08] MEDS: PIPERACILLIN-TAZOBACTAM 3.375 GM in SODIUM CHLORIDE 0.9% 100 ML IVPB SCH ×4 (14:00→23:41)
[2022-09-08] MEDS: SODIUM CHLORIDE 0.9% 1,000 ML IV SCH (14:38)
[2022-09-08] MEDS ORDERED: CYCLOBENZAPRINE 10 MG TAB PO PRN (16:31)
--- NOTE | 2022-09-08 16:36 | P.OP ---
Date of Procedure: 09/08/22 Preoperative Diagnosis: abdominal pain, acute early appendicitis on CT Postoperative Diagnosis: acute appendicitis Procedure(s) Performed: laparoscopic appendectomy Anesthesia: BRIDGERA Surgeon: Chio Rudd Estimated Blood Loss (ml): 10 Urine output (ml): 30 Pathology: other (appendix) Condition: stable Disposition: PACU Indications for Procedure: Persistent abdominal pain with associated nausea, leukocytosis, tachycardia & CT findings concerning for acute early appendicitis. Operative Findings: Acutely inflamed appendix with necrotic changes starting. No perforation, abscess, purulent drainage. Description of Procedure: See full dictation for details.
[2022-09-08] MEDS: ALBUTEROL NEBULIZED 2.5 MG/3 ML INHALATION PRN (19:58)
[2022-09-08] MEDS: hydrOXYzine HCL 25 MG TAB PO SCH (20:22)
[2022-09-08] MEDS: HYDROcodone/APAP 5-325MG 1 EACH TAB PO PRN (20:23)
[2022-09-09] MEDS: HYDROcodone/APAP 5-325MG 1 EACH TAB PO PRN ×3 (01:37→17:37)
[2022-09-09] MEDS: ACETAMINOPHEN TAB 500 MG TAB PO PRN (05:37)
[2022-09-09] MEDS: ALBUTEROL NEBULIZED 2.5 MG/3 ML INHALATION PRN (08:45)
[2022-09-09 09:24] LABS: HGB 11.8 g/dL (12.0-15.0); MCH 28.3 pg (27.0-32.0); MCHC 31.9 g/dL (32.0-37.0); MCV 88.7 fL (80.0-97.0); Mean Platelet Volume 11.4 fL (9.5-12.2); NRBC Per 100 WBC 0 /100 WBCS (0.0-0.0); Platelet Count 194 X 10*3/uL (140-440); RBC 4.17 X 10*6/uL (4.10-5.20); RDW 13.5 % (11.5-14.5)
[2022-09-09] MEDS: buPROPion XL 150 MG TAB.ER.24H PO SCH (09:33)
[2022-09-09] MEDS: CITALOPRAM HYDROBROMIDE 10 MG TAB PO SCH (09:33)
[2022-09-09] MEDS: PANTOPRAZOLE 40 MG/10 ML VIAL IV SCH (09:34)
[2022-09-09] MEDS: PIPERACILLIN-TAZOBACTAM 3.375 GM in SODIUM CHLORIDE 0.9% 100 ML IVPB SCH ×2 (09:34→17:34)
[2022-09-09] MEDS: SODIUM CHLORIDE 0.9% 1,000 ML IV SCH ×2 (09:35→15:49)
[2022-09-09 10:04] LABS: African American GFR (CKD) 97.4 (60.0-200.0); Anion Gap 13.1 mmol/L (10.00-18.00); BUN/Creat Ratio 6.71 Ratio (12.00-20.00); Blood Urea Nitrogen 5.9 mg/dL (9.0-27.0); Calcium 8.4 mg/dL (8.7-10.3); Carbon Dioxide 22.1 mmol/L (20.0-27.5); Non-African American GFR(CKD) 84.1 (60.0-200.0); Potassium 4.2 mmol/L (3.5-5.5)
--- NOTE | 2022-09-09 10:20 | P.CONS ---
History of Present Illness - History of Present Illness This is a pleasant 57 years old female with past medical history of asthma, d epression and anxiety. Presents because of abdominal pain Patient had CAT scan suspicious for early acute appendicitis, surgery team evaluated the patient and she was taken to OR. She status post laparoscopic appendectomy. Today is postop day #1 Patient has some coughing but no wheezing or chest pain, no dyspnea. She still complaining from pain at around surgical site which is expected. She tolerates diet this morning but she has no bowel movement yet. She denies signs symptoms of depression or suicidal ideation. No urinary complaints, no headache dizziness weakness or numbness Vitals are stable and patient is afebrile Labs showing leukocytosis 16.1, down to 12.6. Hemoglobin 11.8 BMP is unremarkable. Glucose 117. Liver enzymes are not elevated significantly. Amylase lipase negative. Serum test less than 2.4. Urine analysis is negative for infection EKG showing left atrial enlargement with a rate of 95, rhythm is sinus. QTC is 414. CT of the abdomen: Significantly enlarged appendix and a prominent mucosa and wall thickening acute appendicitis is suspected. She is currently on Zosyn and IV fluids Review of Systems Review of systems CONSTITUTIONAL: No fever, no malaise, no fatigue. HEENT: No recent visual problems or hearing problems. Denied any sore throat. CARDIOVASCULAR: No orthopnea, PND, no palpitations, no syncope. PULMONARY: No shortness of breath, no cough, no hemoptysis. GASTROINTESTINAL: No diarrhea, no nausea, no vomiting, no abdominal pain. Normoactive bowel sounds. NEUROLOGICAL: No headaches, no weakness, no numbness. HEMATOLOGICAL: Denies any bleeding or petechiae. GENITOURINARY: Denies any burning micturition, frequency, or urgency. MUSCULOSKELETAL/RHEUMATOLOGICAL: Denies any joint pain, swelling, or any muscle pain. ENDOCRINE: Denies any polyuria or polydipsia. Past Medical History Past Medical History: Asthma, Osteoarthritis (OA) Additional Past Medical History / Comment(s): ovarian cyst, endomytriosis History of Any Multi-Drug Resistant Organisms: None Reported Past Surgical History: Orthopedic Surgery Additional Past Surgical History / Comment(s): right eye surg., arthroscopic right knee surg, open ovarian cystectomy Past Anesthesia/Blood Transfusion Reactions: No Reported Reaction Past Psychological History: Anxiety, PTSD Additional Psychological History / Comment(s): Pt resides alone. She is independent. Smoking Status: Never smoker Past Alcohol Use History: Rare Past Drug Use History: None Reported - Past Family History Father Family Medical History: AFIB Mother Family Medical History: No Reported History Additional Family Medical History / Comment(s): Mother is healthy Medications and Allergies Home Medications Medication Instructions Recorded Confirmed Type Citalopram Hydrobromide 30 mg PO DAILY 09/15/19 09/08/22 History [Citalopram HBr] Albuterol Inhaler [Ventolin Hfa 2 puff INHALATION RT-QID PRN 11/27/19 09/08/22 History Inhaler] Cyclobenzaprine [Flexeril] 10 mg PO TID PRN 09/08/22 09/08/22 History buPROPion XL [Wellbutrin XL] 150 mg PO DAILY 09/08/22 09/08/22 History hydrOXYzine HCL [Atarax] 50 mg PO HS 09/08/22 09/08/22 History Allergies Allergy/AdvReac Type Severity Reaction Status Date / Time hydrocodone bitartrate AdvReac Nausea & Verified 09/08/22 13:37 [From Vicodin] Vomiting Physical Exam Vitals: Vital Signs Temp Pulse Pulse Resp BP BP Pulse Ox 09/09/22 08:58 78 09/09/22 08:47 96 09/09/22 08:46 74 09/09/22 08:00 98.8 F 100 18 134/88 97 09/09/22 01:15 98.0 F 90 16 108/64 94 L 09/08/22 20:09 86 09/08/22 20:01 93 L 09/08/22 20:00 87 09/08/22 19:15 83 109/74 96 09/08/22 19:00 92 112/79 96 09/08/22 18:45 83 123/79 95 09/08/22 18:30 83 122/87 97 09/08/22 18:15 100 133/91 98 09/08/22 18:00 94 18 127/89 94 L 09/08/22 17:45 79 18 120/87 95 09/08/22 17:30 98.3 F 94 18 128/84 97 09/08/22 17:18 98.3 F 98 17 128/97 95 04/01/23 16:53 91 15 149/88 95 09/08/22 16:38 96 15 150/86 95 09/08/22 16:30 92 15 180/96 94 L 09/08/22 16:15 90 16 169/101 97 09/08/22 16:00 97.7 F 93 16 132/93 99 09/08/22 12:59 103 H 16 137/95 97 09/08/22 11:00 136/91 95 Intake and Output 09/08/22 09/09/22 09/09/22 22:59 06:59 14:59 Intake Total 0 Output Total 40 Balance -40 Intake: IV 0 Output: Urine 30 Estimated Blood Loss 10 Other: Voiding Method Toilet # Voids 2 -GENERAL: The patient is alert and oriented x3, not in any acute distress. Obese HEENT: Pupils are round and equally reacting to light. EOMI. No scleral icterus. No conjunctival pallor. Normocephalic, atraumatic. No pharyngeal erythema. No thyromegaly. CARDIOVASCULAR: S1 and S2 present. No murmurs, rubs, or gallops. PULMONARY: Chest is clear to auscultation, no wheezing or crackles. -ABDOMEN: Soft, right lower abdominal tenderness, expected, nondistended, normoactive bowel sounds. No palpable organomegaly. Laparoscopic surgical wounds are closed and healing MUSCULOSKELETAL: No joint swelling or deformity. EXTREMITIES: No cyanosis, clubbing, or pedal edema. NEUROLOGICAL: Gross neurological examination did not reveal any focal deficits. SKIN: No rashes. no petechiae. Results CBC & Chem 7: 09/09/22 03:50 09/09/22 03:50 Labs: Abnormal Lab Results - Last 24 Hours (Table) 09/08/22 09/09/22 09/09/22 Range/Units 09:14 03:50 03:50 WBC 12.60 H (4.50-10.00) X 10*3/uL Hgb 11.8 L (12.0-15.0) g/dL Hct 37.0 L (37.2-46.3) % MCHC 31.9 L (32.0-37.0) g/dL BUN 5.9 L (9.0-27.0) mg/dL BUN/Creatinine Ratio 6.71 L (12.00-20.00) Ratio Glucose 117 H (70-110) mg/dL Calcium 8.4 L (8.7-10.3) mg/dL Urine Appearance Cloudy H (Clear) Urine Ketones Trace H (Negative) Urine Bacteria Rare H (None) /hpf Urine Mucus Many H (None) /hpf Assessment and Plan Assessment: Acute appendicitis, status post laparoscopic appendectomy. Postop day #1 Postop anemia expected Mild leukocytosis improving, could be secondary to above Obesity with BMI of 37.8 Plan: Continue with postop care per surgery team The decision for need for antibiotics is deferred to surgery team Follow-up biopsy result. Labs and medication were reviewed.. Continue same treatment. Continue with symptomatic treatment. Resume home medication. Monitor labs and vitals. DVT and GI prophylaxis. Further recommendations as per clinical course of the patient DVT prophylaxis: Subcutaneous deferred to surgery team GI Prophylaxis: Ppi Incentive spirometry We recommend patient follow up with PCP in one week after discharge, patient was instructed with the same and she has a contact information Thank you for consulting us
[2022-09-09] MEDS: IBUPROFEN 600 MG TAB PO PRN (13:56)
--- NOTE | 2022-09-09 16:25 | P.PN ---
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 HR at the time was 140s. Pain is still present; over lower abdomen & umbilicus. Normal BM. Last ate around 4am. Has history of ovarian cyst & endometriosis, but this episode of pain is different. Taken to OR for laparoscopic appendectomy & found to have acute appendicitis without perforation. Doing well. Tolerating diet. No nausea. Urinating OK. Passing flatus. Umbilical pain, which is her largest incision. Wants to stay one more day before going home to ensure pain adequately controlled. Tachycardia resolved. Leukocytosis down-trending. Objective - Vital Signs Vital signs: Vital Signs Temp 98.3 F 09/09/22 14:00 Pulse 82 09/09/22 14:00 Resp 17 09/09/22 14:00 BP 132/83 09/09/22 14:00 Pulse Ox 95 09/09/22 14:00 FiO2 Intake & Output 09/08/22 09/09/22 09/09/22 18:59 06:59 18:59 Intake Total 1400 Output Total 40 Balance 1360 Weight 99.79 kg Intake: IV 1400 Output: Urine 30 Estimated Blood Loss 10 Other: Voiding Method Toilet # Voids 2 - Constitutional General appearance: Present: cooperative, no acute distress - EENT Eyes: Present: anicteric sclerae ENT: Present: hearing grossly normal - Neck Details: supple - Respiratory Details: non labored breathing, normal effort & excursion - Cardiovascular Rhythm: regular - Gastrointestinal Gastrointestinal Comment(s): appropriately post-operative tenderness to palpation, incisions healing & covered with dermabonds General gastrointestinal: Present: soft. Absent: distended, rigid - Integumentary Integumentary Comment(s): dry, no diaphoresis - Neurologic Neurologic Comment(s): no gross deficits - Psychiatric Psychiatric Comment(s): cooperative, normal affect - Labs CBC & Chem 7: 09/09/22 03:50 09/09/22 03:50 Labs: Abnormal Lab Results - Last 24 Hours (Table) 09/09/22 09/09/22 Range/Units 03:50 03:50 WBC 12.60 H (4.50-10.00) X 10*3/uL Hgb 11.8 L (12.0-15.0) g/dL Hct 37.0 L (37.2-46.3) % MCHC 31.9 L (32.0-37.0) g/dL BUN 5.9 L (9.0-27.0) mg/dL BUN/Creatinine Ratio 6.71 L (12.00-20.00) Ratio Glucose 117 H (70-110) mg/dL Calcium 8.4 L (8.7-10.3) mg/dL Assessment and Plan Assessment: lower abdominal pain & nausea, suspect early acute appendicitis with appendicolith - CT shows appendix tracking to pelvis - less likely COAL CUTTING MACHINE OPERATOR in nature due to CT findings, but could have component of endometriosis or ovarian cyst - s/p laparoscopic appendectomy for acute appendicitis tachycardia, resolved leukocytosis, down trending Plan: OK for regular diet PO pain control Ambulate, encourage OOB Needs IS Anticipate discharge tomorrow Time with Patient: Less than 30
[2022-09-09] MEDS ORDERED: ENOXAPARIN 30 MG/0.3 ML SYRINGE SQ SCH (16:30)
[2022-09-09] MEDS: ENOXAPARIN 40 MG/0.4 ML SYRINGE SQ SCH (17:37)
[2022-09-09] MEDS: hydrOXYzine HCL 25 MG TAB PO SCH (21:19)
[2022-09-10] MEDS: PIPERACILLIN-TAZOBACTAM 3.375 GM in SODIUM CHLORIDE 0.9% 100 ML IVPB SCH ×3 (00:23→17:31)
[2022-09-10] MEDS: SODIUM CHLORIDE 0.9% 1,000 ML IV SCH ×2 (00:24→16:19)
[2022-09-10] MEDS: HYDROcodone/APAP 5-325MG 1 EACH TAB PO PRN ×2 (00:28→09:59)
[2022-09-10] MEDS: ENOXAPARIN 40 MG/0.4 ML SYRINGE SQ SCH (07:15)
[2022-09-10] MEDS: CITALOPRAM HYDROBROMIDE 10 MG TAB PO SCH (07:15)
[2022-09-10] MEDS: buPROPion XL 150 MG TAB.ER.24H PO SCH (07:15)
[2022-09-10] MEDS: IBUPROFEN 600 MG TAB PO PRN (07:18)
[2022-09-10] MEDS: PANTOPRAZOLE 40 MG/10 ML VIAL IV SCH (09:06)
[2022-09-10 10:44] LABS: Basophils # (A) 0.06 X 10*3/uL (0.00-0.10); Basophils % (A) 0.7 %; Eosinophils % (A) 2.4 %; HCT 36.3 % (37.2-46.3); HGB 11.4 g/dL (12.0-15.0); Immature Grans, Automated 0.5 %; Lymphocytes # (A) 1.87 X 10*3/uL (0.90-5.00); Lymphocytes % (A) 22.1 %; MCH 28.6 pg (27.0-32.0); MCHC 31.4 g/dL (32.0-37.0); MCV 91.2 fL (80.0-97.0); Mean Platelet Volume 11.3 fL (9.5-12.2); Monocytes # (A) 0.47 X 10*3/uL (0.20-1.00); Monocytes % (A) 5.5 %; NRBC Per 100 WBC 0 /100 WBCS (0.0-0.0); Neutrophils # (A) 5.84 X 10*3/uL (1.80-7.70); Neutrophils % (A) 68.8 %; Platelet Count 183 X 10*3/uL (140-440); RBC 3.98 X 10*6/uL (4.10-5.20); RDW 13.8 % (11.5-14.5); WBC 8.48 X 10*3/uL (4.50-10.00)
[2022-09-10 10:54] LABS: African American GFR (CKD) 83.3 (60.0-200.0); Anion Gap 8.5 mmol/L (10.00-18.00); Calcium 8.1 mg/dL (8.7-10.3); Carbon Dioxide 26.5 mmol/L (20.0-27.5); Non-African American GFR(CKD) 71.9 (60.0-200.0); Potassium 3.5 mmol/L (3.5-5.5)
[2022-09-10 14:25] VITALS: BP 134/85; PULSE 80; RESP 18; TEMP 98.5
--- NOTE | 2022-09-10 15:39 | P.PN ---
Progress Note - Text Progress Note Date: 09/10/22 - History of Present Illness This is a pleasant 57 years old female with past medical history of asthma, depression and anxiety. Presents because of abdominal pain Patient had CAT scan suspicious for early acute appendicitis, surgery team evaluated the patient and she was taken to OR. She status post laparoscopic appendectomy. Today is postop day #1 Patient has some coughing but no wheezing or chest pain, no dyspnea. She still complaining from pain at around surgical site which is expected. She tolerates diet this morning but she has no bowel movement yet. She denies signs symptoms of depression or suicidal ideation. No urinary complaints, no headache dizziness weakness or numbness Vitals are stable and patient is afebrile Labs showing leukocytosis 16.1, down to 12.6. Hemoglobin 11.8 BMP is unremarkable. Glucose 117. Liver enzymes are not elevated s ignificantly. Amylase lipase negative. Serum test less than 2.4. Urine analysis is negative for infection EKG showing left atrial enlargement with a rate of 95, rhythm is sinus. QTC is 414. CT of the abdomen: Significantly enlarged appendix and a prominent mucosa and wall thickening acute appendicitis is suspected. She is currently on Zosyn and IV fluids 09/10/2022: I assumed care of the patient today. Patient did tolerate a regular breakfast this morning. No nausea vomiting. Did pass some flatus. No bowel movement. Pain control. Did walk in the room. DC antibiotic as per general surgery. Discussed with patient. Questions answered. On examination: VITAL SIGNS: [98.5, 80, 18, 134/85, 96% room air] GENERAL APPEARANCE: BMI 37.8, laying in bed, awake not in distress HEENT: Normal external appearance of nose and ear. Oral cavity normal EYES: Pupils equal. Conjunctiva normal. NECK: JVD not raised. Mass not palpable. RESPIRATORY: Respiratory effort normal. Lungs clear to auscultation. CARDIOVASCULAR: First and second sounds normal. No edema. ABDOMEN: Soft. Mild tenderness, Liver and spleen not palpable. . No mass palpable. PSYCHIATRY: Alert and oriented x3. Mood and affect normal. INVESTIGATIONS, reviewed in the clinical context: White count 8.4 hemoglobin 11.4 platelets 183 potassium 3.[address] abdomen pelvis: Significantly enlarged appendix with appendicolith. Suggestive for acute appendicitis. Past Medical History Past Medical History: Asthma, Osteoarthritis (OA) Additional Past Medical History / Comment(s): ovarian cyst, endomytriosis History of Any Multi-Drug Resistant Organisms: None Reported Past Surgical History: Orthopedic Surgery Additional Past Surgical History / Comment(s): right eye surg., arthroscopic right knee surg, open ovarian cystectomy Past Anesthesia/Blood Transfusion Reactions: No Reported Reaction Past Psychological History: Anxiety, PTSD Additional Psychological History / Comment(s): Pt resides alone. She is independent. Smoking Status: Never smoker Past Alcohol Use History: Rare Past Drug Use History: None Reported - Past Family History Father Family Medical History: AFIB Mother Family Medical History: No Reported History Additional Family Medical History / Comment(s): Mother is healthy Medications and Allergies Home Medications Medication Instructions Recorded Confirmed Type Citalopram Hydrobromide 30 mg PO DAILY 09/15/19 09/08/22 History [Citalopram HBr] Albuterol Inhaler [Ventolin Hfa 2 puff INHALATION RT-QID PRN 11/27/19 09/08/22 History Inhaler] Cyclobenzaprine [Flexeril] 10 mg PO TID PRN 09/08/22 09/08/22 History buPROPion XL [Wellbutrin XL] 150 mg PO DAILY 09/08/22 09/08/22 History hydrOXYzine HCL [Atarax] 50 mg PO HS 09/08/22 09/08/22 History Allergies Allergy/AdvReac Type Severity Reaction Status Date / Time hydrocodone bitartrate AdvReac Nausea & Verified 09/08/22 13:37 [From Vicodin] Vomiting Assessment and plan: -Acute appendicitis, status post laparoscopic appendectomy. Surgery on 09/09/2022 by . Regular diet. IV Zosyn. -Acute postprocedure anemia as expected -Obesity with BMI of 37.8 Weight loss measures -Intermittent asthma Mental and when necessary -Intermittent lumbar back spasm Flexeril when necessary -Anxiety disorder, PTSD Wellbutrin XL, Celexa Tolerated regular breakfast this morning. Did ambulate. No nausea vomiting. No fever. Questions answered. Home antibiotic as per surgery
[2022-09-10] MEDS: ACETAMINOPHEN TAB 500 MG TAB PO PRN (16:52)
--- NOTE | 2022-09-10 18:03 | P.DS ---
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 HR at the time was 140s. Pain is still present; over lower abdomen & umbilicus. Normal BM. Last ate around 4am. Has history of ovarian cyst & endometriosis, but this episode of pain is different. Taken to OR for laparoscopic appendectomy & found to have acute appendicitis without perforation. Doing well. Pain well controlled with PO analgesia. Tolerating diet. Urinating without issues, passing flatus. Walking in room. Stable for discharge home. Opioid talk form completed. Work note provided. Rx to be given for [place], muscle relaxant. Assessment: Resting comfortably, NAD Non labored breathing, normal effort & excursion Reg rate Abdomen soft, minimally tender along umbilical incision, non distended; incisions with dermabond & healing well No LE edema Procedures: laparoscopic appendectomy Patient Condition at Discharge: Stable Plan - Discharge Summary Discharge Rx Participant: No New Discharge Prescriptions: New Acetaminophen Tab [Tylenol] 500 mg PO Q6HR PRN tab PRN Reason: Fever And/ Or Pain Continue Citalopram Hydrobromide [Citalopram HBr] 30 mg PO DAILY Albuterol Inhaler [Ventolin Hfa Inhaler] 2 puff INHALATION RT-QID PRN PRN Reason: Shortness Of Breath hydrOXYzine HCL [Atarax] 50 mg PO HS Cyclobenzaprine [Flexeril] 10 mg PO TID PRN PRN Reason: MUSCLE PAIN buPROPion XL [Wellbutrin XL] 150 mg PO DAILY Discharge Medication List Citalopram Hydrobromide [Citalopram HBr] 30 mg PO DAILY 09/15/19 [History] Albuterol Inhaler [Ventolin Hfa Inhaler] 2 puff INHALATION RT-QID PRN 11/27/19 [History] Cyclobenzaprine [Flexeril] 10 mg PO TID PRN 09/08/22 [History] buPROPion XL [Wellbutrin XL] 150 mg PO DAILY 09/08/22 [History] hydrOXYzine HCL [Atarax] 50 mg PO HS 09/08/22 [History] Acetaminophen Tab [Tylenol] 500 mg PO Q6HR PRN tab 09/10/22 [Rx] Follow up Appointment(s)/Referral(s): Cora Cowart MD [Primary Care Provider] - 1-2 days (Office is closed at time of discharge. Please call for appointment.) Patient Instructions/Handouts: Laparoscopic Appendectomy (DC) Discharge Disposition: HOME SELF-CARE
== END 2022-09-10 18:37 | disposition home or self-care (01) ==
LOC: EC 08:27 → 4SSUR 13:05
PROVIDERS: ADMIT Surgery; ATTEND Surgery
DX: K35.80 Unspecified acute appendicitis (principal); D62 Acute posthemorrhagic anemia; K38.1 Appendicular concretions; J45.20 Mild intermittent asthma, uncomplicated; M62.830 Muscle spasm of back; M19.90 Unspecified osteoarthritis, unspecified site; F43.10 Post-traumatic stress disorder, unspecified; F41.9 Anxiety disorder, unspecified; N80.9 Endometriosis, unspecified; F32.A Depression, unspecified; E66.9 Obesity, unspecified; Z68.37 Body mass index [BMI] 37.0-37.9, adult; Z79.899 Other long term (current) drug therapy; Z88.5 Allergy status to narcotic agent; Z87.42 Personal history of other diseases of the female genital tract; Z98.890 Other specified postprocedural states; Z82.49 Family history of ischemic heart disease and other diseases of the circulatory system
CPT/HCPCS: 96376; 96361; 96374; 96375; 99285; 36415; 94640 ×2; 94760 ×2; 93005; 80053; 80048 ×2; 82150; 83605; 83690; 85025 ×2; 85027; 81001; 84702; 74176; 44970; G0378 ×3; J2543 ×3; J2250; J0330; J1100; J2710; J2405; J1650 ×2; J3010; J1170 ×2; J1885; J2704; C9113 ×3; 88304

== ENCOUNTER 2022-10-30 22:49 | Emergency (ER) | payer BC ==
[2022-10-30] MEDS ORDERED: SODIUM CHLORIDE 0.9% 1,000 ML IV ONE (23:29)
[2022-10-30 23:35] VITALS: RESP 16
[2022-10-31] LABS: Basophils % (A) 0 %; Eosinophils % (A) 3 %; HCT 42.4 % (34.0-46.0); HGB 14.1 gm/dL (11.4-16.0); Lymphocytes % (A) 14 %; MCH 29.1 pg (25.0-35.0); MCHC 33.3 g/dL (31.0-37.0); MCV 87.3 fL (80.0-100.0); Mean Platelet Volume 8.2; Monocytes # (A) 0.2 k/uL (0-1.0); Monocytes % (A) 3 %; Neutrophils # (A) 5.9 k/uL (1.3-7.7); Neutrophils % (A) 79 %; Platelet Count 200 k/uL (150-450); RBC 4.86 m/uL (3.80-5.40); RDW 13.5 % (11.5-15.5); WBC 7.5 k/uL (3.8-10.6)
[2022-10-31 00:01] LABS: Eosinophils # (A) 0.2 k/uL (0-0.7)
--- NOTE | 2022-10-31 00:02 | ED ---
General Adult HPI - General Chief complaint: Chest Pain Stated complaint: Chest Pain Time Seen by Provider: 10/30/22 23:25 Source: patient, RN notes reviewed, old records reviewed Mode of arrival: ambulatory Limitations: no limitations - History of Present Illness Initial comments: 37 -year-old female presenting for evaluation of chest pain, dyspnea and lightheadedness. Symptoms began while at work approximately one hour prior to arrival. Patient denied any preceding symptoms. She did have associated palpitations. She had recent abdominal surgery for appendectomy. She denies significant abdominal pain. Denies fever. Denies cough. Denies lower extremity pain or swelling. - Related Data Home Medications Medication Instructions Recorded Confirmed Citalopram Hydrobromide 30 mg PO DAILY 09/15/19 09/08/22 [Citalopram HBr] Albuterol Inhaler [Ventolin Hfa 2 puff INHALATION RT-QID PRN 11/27/19 09/08/22 Inhaler] Cyclobenzaprine [Flexeril] 10 mg PO TID PRN 09/08/22 09/08/22 buPROPion XL [Wellbutrin XL] 150 mg PO DAILY 09/08/22 09/08/22 hydrOXYzine HCL [Atarax] 50 mg PO HS 09/08/22 09/08/22 Previous Rx's Medication Instructions Recorded Acetaminophen Tab [Tylenol] 500 mg PO Q6HR PRN tab 09/10/22 Allergies Allergy/AdvReac Type Severity Reaction Status Date / Time hydrocodone bitartrate AdvReac Nausea & Verified 09/08/22 13:37 [From Vicodin] Vomiting Review of Systems ROS Statement: Those systems with pertinent positive or pertinent negative responses have been documented in the HPI. ROS Other: All systems not noted in ROS Statement are negative. Past Medical History Past Medical History: Asthma, Osteoarthritis (OA) Additional Past Medical History / Comment(s): ovarian cyst, endomytriosis POTS tachycardia History of Any Multi-Drug Resistant Organisms: None Reported Past Surgical History: Appendectomy, Orthopedic Surgery Additional Past Surgical History / Comment(s): right eye surg., arthroscopic right knee surg, open ovarian cystectomy Past Anesthesia/Blood Transfusion Reactions: No Reported Reaction Past Psychological History: Anxiety, PTSD Smoking Status: Never smoker Past Alcohol Use History: Rare Past Drug Use History: None Reported - Past Family History Father Family Medical History: AFIB Mother Family Medical History: No Reported History Additional Family Medical History / Comment(s): Mother is healthy General Exam Limitations: no limitations General appearance: alert, in no apparent distress Head exam: Present: atraumatic, normocephalic Eye exam: Present: normal appearance, PERRL ENT exam: Present: normal exam Neck exam: Present: normal inspection. Absent: tenderness, meningismus Respiratory exam: Present: normal lung sounds bilaterally. Absent: respiratory distress, wheezes Cardiovascular Exam: Present: normal rhythm, tachycardia GI/Abdominal exam: Present: soft. Absent: distended, tenderness, guarding, rebound Extremities exam: Present: normal inspection, normal capillary refill. Absent: pedal edema, calf tenderness Neurological exam: Present: alert, oriented X3, CN II-XII intact. Absent: motor sensory deficit Psychiatric exam: Present: normal affect, normal mood Skin exam: Present: warm, dry, intact. 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 sent in by a medical professional or institution (, PA, BELT OPERATOR, urgent care, hospital, or snf...) When possible be specific @ -No Did you speak to anyone other than the patient for history (EMS, parent, family, police, friend...)? What history was obtained from this source @ -No Did you review nursing and triage notes (agree or disagree)? Why? @ -I reviewed and agree with nursing and triage notes Were old charts reviewed (outside hosp., previous admission, EMS record, old EKG, old radiological studies, urgent care reports/EKG's, snf records)? Report findings @ -No old charts were reviewed Differential Diagnosis (chest pain, altered mental status, abdominal pain women, abdominal pain men, vaginal bleeding, weakness, fever, dyspnea, syncope, headache, dizziness, GI bleed, back pain, seizure, CVA, palpatations, mental health, musculoskeletal)? @ Differential Chest Pain: Stable Angina, Unstable Angina, STEMI, NSTEMI Aortic Dissection, Pneumothorax, Musculoskeletal, Esophageal Spasm GERD, Cholecystitis, Pancreatitis, Zoster, this is not meant to be an all-inclusive list. EKG interpreted by me (3pts min.). @EKG: Sinus tachycardia, rate of 1:15, IN interval 152, QRS duration 89, QTC 410 , no ST segment elevation. X-rays interpreted by me (1pt min.). @ -No pneumothorax, no focal pneumonia, interpreted by radiologist as vascular congestion. CT interpreted by me (1pt min.). @ CT was nondiagnostic due to contrast timing, I do not see a saddle pulmonary embolism. U/S interpreted by me (1pt. min.). @ -None done What testing was considered but not performed or refused? (CT, X-rays, U/S, labs)? Why? @ -None What meds were considered but not given or refused? Why? @ -None Did you discuss the management of the patient with other professionals (professionals i.e. , PA, BELT OPERATOR, lab, RT, psych nurse, drug abuse social worker, hot mill operator, teacher, chief development officer, case assembler)? Give summary @ -No Was smoking cessation discussed for >3mins.? @ -No Was critical care preformed (if so, how long)? @ -No Were there social determinants of health that impacted care today? How? (Homel essness, low income, unemployed, alcoholism, drug addiction, transportation, low edu. Level, literacy, decrease access to med. care, half-way, rehab)? @ -No Was there de-escalation of care discussed even if they declined (Discuss DNR or withdrawal of care, Hospice)? DNR status @ -No What co-morbidities impacted this encounter? (DM, HTN, Smoking, COPD, CAD, Cancer, CVA, ARF, Chemo, Hep., AIDS, mental health diagnosis, sleep apnea, morbid obesity)? @ -Tachycardia Was patient admitted / discharged? Hospital course, mention meds given and route, prescriptions, significant lab abnormalities, going to OR and other pertinent info. @ -37-year-old female with palpitations, chest discomfort, lightheadedness. Patient had a minimally elevated d-dimer at 0.61 and did have recent surgery however given the risks for PE CT angiography was ordered in addition to a chest x-ray, laboratory testing and EKG. Patient's underwent CT imaging which was nondiagnostic. Her chest x-ray was negative for pneumothorax or focal pneumonia. My plan was to admit this patient for further testing including echo and possible repeat angiography however the patient states her symptoms are resolved, her heart rate is improved. She prefers to be discharged with outpatient workup. She is informed of the risks and is given a cardiology referral. She states that her symptoms are completely resolved and she will return with any worsening or changing symptoms. Undiagnosed new problem with uncertain prognosis? @ -No Drug Therapy requiring intensive monitoring for toxicity (Heparin, Nitro, Insulin, Cardizem)? @ -No Were any procedures done? @ -No Diagnosis/symptom? @ Chest pain Acute, or Chronic, or Acute on Chronic? @ Acute Uncomplicated (without systemic symptoms) or Complicated (systemic symptoms)? @ -Complicated Side effects of treatment? @ -No Exacerbation, Progression, or Severe Exacerbation? @ -No Poses a threat to life or bodily function? How? (Chest pain, [place], [place], pneumonia, PE, COPD, DKA, ARF, appy, cholecystitis, CVA, Diverticulitis, Homicidal, Suicidal, threat to staff... and all critical care pts) @ -Yes, chest pain, arrhythmia - Lab Data Result diagrams: 10/30/22 23:43 10/30/22 23:43 Lab Results 10/30/22 10/30/22 10/30/22 Range/Units 23:43 23:43 23:43 WBC 7.5 (3.8-10.6) k/uL RBC 4.86 (3.80-5.40) m/uL Hgb 14.1 (11.4-16.0) gm/dL Hct 42.4 (34.0-46.0) % MCV 87.3 (80.0-100.0) fL MCH 29.1 (25.0-35.0) pg MCHC 33.3 (31.0-37.0) g/dL RDW 13.5 (11.5-15.5) % Plt Count 200 (150-450) k/uL MPV 8.2 Neutrophils % 79 % Lymphocytes % 14 % Monocytes % 3 % Eosinophils % 3 % Basophils % 0 % Neutrophils # 5.9 (1.3-7.7) k/uL Lymphocytes # 1.0 (1.0-4.8) k/uL Monocytes # 0.2 (0-1.0) k/uL Eosinophils # 0.2 (0-0.7) k/uL Basophils # 0.0 (0-0.2) k/uL PT 9.6 (9.0-12.0) sec INR 0.9 (<1.2) APTT 20.6 L (22.0-30.0) sec D-Dimer 0.61 H (<0.60) mg/L FEU Sodium 138 (137-145) mmol/L Potassium 3.8 (3.5-5.1) mmol/L Chloride 104 (98-107) mmol/L Carbon Dioxide 23 (22-30) mmol/L Anion Gap 11 mmol/L BUN 9 (7-17) mg/dL Creatinine 0.82 (0.52-1.04) mg/dL Est GFR (CKD-EPI)AfAm >90 (>60 ml/min/1.73 sqM) Est GFR (CKD-EPI)NonAf >90 (>60 ml/min/1.73 sqM) Glucose 111 H (74-99) mg/dL Calcium 9.0 (8.4-10.2) mg/dL Magnesium 1.9 (1.6-2.3) mg/dL Total Bilirubin 0.4 (0.2-1.3) mg/dL AST 33 (14-36) U/L ALT 39 H (4-34) U/L Alkaline Phosphatase 102 (38-126) U/L Troponin I (0.000-0.034) ng/mL Total Protein 7.3 (6.3-8.2) g/dL Albumin 4.3 (3.5-5.0) g/dL Urine Color Urine Appearance (Clear) Urine pH (5.0-8.0) Ur Specific Kane (1.001-1.035) Urine Protein (Negative) Urine Glucose (UA) (Negative) Urine Ketones (Negative) Urine Blood (Negative) Urine Nitrite (Negative) Urine Bilirubin (Negative) Urine Urobilinogen (<2.0) mg/dL Ur Leukocyte Esterase (Negative) Urine HCG, Qual (Not Detectd) 10/30/22 10/31/22 10/31/22 Range/Units 23:43 01:04 01:04 WBC (3.8-10.6) k/uL RBC (3.80-5.40) m/uL Hgb (11.4-16.0) gm/dL Hct (34.0-46.0) % MCV (80.0-100.0) fL MCH (25.0-35.0) pg MCHC (31.0-37.0) g/dL RDW (11.5-15.5) % Plt Count (150-450) k/uL MPV Neutrophils % % Lymphocytes % % Monocytes % % Eosinophils % % Basophils % % Neutrophils # (1.3-7.7) k/uL Lymphocytes # (1.0-4.8) k/uL Monocytes # (0-1.0) k/uL Eosinophils # (0-0.7) k/uL Basophils # (0-0.2) k/uL PT (9.0-12.0) sec INR (<1.2) APTT (22.0-30.0) sec D-Dimer (<0.60) mg/L FEU Sodium (137-145) mmol/L Potassium (3.5-5.1) mmol/L Chloride (98-107) mmol/L Carbon Dioxide (22-30) mmol/L Anion Gap mmol/L BUN (7-17) mg/dL Creatinine (0.52-1.04) mg/dL Est GFR (CKD-EPI)AfAm (>60 ml/min/1.73 sqM) Est GFR (CKD-EPI)NonAf (>60 ml/min/1.73 sqM) Glucose (74-99) mg/dL Calcium (8.4-10.2) mg/dL Magnesium (1.6-2.3) mg/dL Total Bilirubin (0.2-1.3) mg/dL AST (14-36) U/L ALT (4-34) U/L Alkaline Phosphatase (38-126) U/L Troponin I <0.012 (0.000-0.034) ng/mL Total Protein (6.3-8.2) g/dL Albumin (3.5-5.0) g/dL Urine Color Light Yellow Urine Appearance Clear (Clear) Urine pH 5.0 (5.0-8.0) Ur Specific Kane 1.014 (1.001-1.035) Urine Protein Negative (Negative) Urine Glucose (UA) Negative (Negative) Urine Ketones Negative (Negative) Urine Blood Negative (Negative) Urine Nitrite Negative (Negative) Urine Bilirubin Negative (Negative) Urine Urobilinogen <2.0 (<2.0) mg/dL Ur Leukocyte Esterase Negative (Negative) Urine HCG, Qual Not Detected (Not Detectd) Disposition Clinical Impression: Chest pressure Disposition: HOME SELF-CARE Condition: Fair Instructions (If sedation given, give patient instructions): Chest Pain (ED) Is patient prescribed a controlled substance at d/c from ED?: No Referrals: Cora Cowart MD [Primary Care Provider] - 1-2 days Olaf Patterson MD [STAFF PHYSICIAN] - 1-2 days Time of Disposition: 02:23
[2022-10-31 00:09] LABS: ALT 39 U/L (4-34); AST 33 U/L (14-36); African American GFR (CKD) >90 (>60 ml/min/1.73 sqM); Albumin 4.3 g/dL (3.5-5.0); Alkaline Phosphatase 102 U/L (38-126); Anion Gap 11 mmol/L; Blood Urea Nitrogen 9 mg/dL (7-17); Carbon Dioxide 23 mmol/L (22-30); Chloride 104 mmol/L (98-107); Glucose 111 mg/dL (74-99); Magnesium 1.9 mg/dL (1.6-2.3); Non-African American GFR(CKD) >90 (>60 ml/min/1.73 sqM); Potassium 3.8 mmol/L (3.5-5.1); Sodium 138 mmol/L (137-145); Total Bilirubin 0.4 mg/dL (0.2-1.3); Total Protein 7.3 g/dL (6.3-8.2)
[2022-10-31 00:23] LABS: INR 0.9 (<1.2); Partial Thromboplastin Time 20.6 sec (22.0-30.0); Prothrombin Time 9.6 sec (9.0-12.0)
[2022-10-31 01:50] LABS: Appearance,Urine Clear (Clear); Bilirubin,Urine Negative (Negative); Blood,Urine Negative (Negative); Color,Urine Light Yellow; Glucose,Urine (UA) Negative (Negative); Ketones,Urine Negative (Negative); Leukocyte Esterase,Urine Negative (Negative); Nitrite,Urine Negative (Negative); Protein,Urine Negative (Negative); Specific Gravity,Urine 1.014 (1.001-1.035); Urobilinogen,Urine <2.0 mg/dL (<2.0)
--- NOTE | 2022-10-31 02:06 | CT ---
EXAM: CT Angiography Chest With Intravenous Contrast CLINICAL HISTORY: ITS.REASON CT Reason: HUSEYIN pos dimer TECHNIQUE: Axial computed tomographic angiography images of the chest with intravenous contrast. CTDI is 12.9 mGy and DLP is 794.7 mGy-cm. This CT exam was performed using one or more of the following dose reduction techniques: automated exposure control, adjustment of the mA and/or kV according to patient size, and/or use of iterative reconstruction technique. MIP reconstructed images were created and reviewed. COMPARISON: 11/27/2019 FINDINGS: Pulmonary arteries: Suboptimal opacification of the pulmonary arteries. Study is not diagnostic for evaluation for pulmonary embolism. Aorta: No acute findings. No thoracic aortic aneurysm. Lungs: Unremarkable. No mass. No consolidation. Pleural space: Unremarkable. No significant effusion. No pneumothorax. Heart: Unremarkable. No cardiomegaly. No significant pericardial effusion. No evidence of RV dysfunction. Bones/joints: No acute fracture. No dislocation. Soft tissues: Unremarkable. Lymph nodes: Unremarkable. No enlarged lymph nodes. IMPRESSION: Suboptimal opacification of the pulmonary arteries. Study is not diagnostic for evaluation for pulmonary embolism.
--- NOTE | 2022-10-31 02:07 | XR ---
EXAM: XR Chest, 2 Views CLINICAL HISTORY: ITS.REASON XR Reason: Chest Pain TECHNIQUE: Frontal and lateral views of the chest. COMPARISON: 11/26/2021 FINDINGS: Lungs: Vascular congestion. Pleural space: Unremarkable. No pneumothorax. No pleural effusions. Heart: Unremarkable. No cardiomegaly. Mediastinum: Unremarkable. Bones/joints: No acute osseous abnormalities. IMPRESSION: Vascular congestion.
[2022-10-31 02:37] VITALS: BP 135/91; PULSE 94; TEMP 97.8
== END 2022-10-31 02:38 | disposition home or self-care (01) ==
LOC: EC 22:49
DX: R07.89 Other chest pain (principal); J45.909 Unspecified asthma, uncomplicated; F41.9 Anxiety disorder, unspecified; Z79.899 Other long term (current) drug therapy; Z88.5 Allergy status to narcotic agent
CPT/HCPCS: 36415; 85379; 80053; 83735; 84484; 85025; 85610; 85730; 81003; 81025; 71046; 71275; 99285; 96360; Q9967; 93005